=== PATIENT | male | born 1980 | race African-American/Black ===

== ENCOUNTER 2018-05-23 21:23 | Emergency (ER) | payer MEDICAID ==
[~2018-05-23 21:23] MED LIST: INSLAN; insulin
== END 2018-05-23 22:40 | disposition left against medical advice (07) ==
LOC: ER 21:23
DX: Z53.21 Procedure and treatment not carried out due to patient leaving prior to being seen by health care provider (principal)

== ENCOUNTER 2018-07-29 23:30 | Emergency (ER) | payer MEDICAID ==
[~2018-07-29] VITALS: Ht 167.6 cm; Wt 61.0 kg
[2018-07-30] MEDS ORDERED: IBUPROFEN 600MG TABLET PO ONE (01:00)
[2018-07-30] MEDS ORDERED: DEXAMETHASONE 10 MG/ML VIAL IM ONE (01:00)
[2018-07-30 01:26] VITALS: BP 122/80
== END 2018-07-30 01:26 | disposition home or self-care (01) ==
LOC: ER 23:30
DX: J02.9 Acute pharyngitis, unspecified (principal); E11.9 Type 2 diabetes mellitus without complications
CPT/HCPCS: 96372; 99283; J1100

== ENCOUNTER 2019-01-05 23:08 | Emergency (ER) | payer MEDICAID ==
[~2019-01-05] VITALS: Ht 167.6 cm; Wt 61.0 kg
[2019-01-06] MEDS ORDERED: IBUPROFEN 800MG TABLET PO ONE (00:30)
[2019-01-06 03:18] VITALS: BP 136/84
== END 2019-01-06 03:23 | disposition home or self-care (01) ==
LOC: ER 23:08
DX: M79.662 Pain in left lower leg (principal); M79.661 Pain in right lower leg; R60.0 Localized edema; F12.10 Cannabis abuse, uncomplicated; E11.9 Type 2 diabetes mellitus without complications; Z79.4 Long term (current) use of insulin
CPT/HCPCS: 93970; 99284

== ENCOUNTER 2019-04-12 08:57 | Emergency (ER) | payer MEDICAID ==
[~2019-04-12] VITALS: Ht 170.2 cm; Wt 77.0 kg
[2019-04-12 09:23] VITALS: BP 116/63
== END 2019-04-12 09:59 | disposition left against medical advice (07) ==
LOC: ER 08:57
DX: Z53.21 Procedure and treatment not carried out due to patient leaving prior to being seen by health care provider (principal); E11.9 Type 2 diabetes mellitus without complications; Z79.4 Long term (current) use of insulin

== ENCOUNTER 2019-04-13 16:35 | Emergency (ER) | payer MEDICAID ==
[~2019-04-13] VITALS: Ht 167.6 cm; Wt 61.0 kg
[2019-04-13] MEDS ORDERED: LIDOCAINE HCL/EPINEPHRINE 1%-EPI 1:100,000 20 ML VIAL INFIL ONE (17:30)
[2019-04-13] MEDS ORDERED: IBUPROFEN 800MG TABLET PO ONE (17:30)
[2019-04-13 17:46] VITALS: BP 114/68
== END 2019-04-13 18:42 | disposition home or self-care (01) ==
LOC: ER 16:35
DX: S60.011A Contusion of right thumb without damage to nail, initial encounter (principal); E11.9 Type 2 diabetes mellitus without complications; W23.1XXA Caught, crushed, jammed, or pinched between stationary objects, initial encounter; Y93.9 Activity, unspecified; Y92.9 Unspecified place or not applicable; Z79.4 Long term (current) use of insulin
CPT/HCPCS: 73140; 99283; J3490

== ENCOUNTER 2019-08-06 12:13 | Emergency (ER) | payer MEDICAID ==
[~2019-08-06] VITALS: Ht 167.6 cm; Wt 61.0 kg
[~2019-08-06 12:13] MED LIST changes: -INSLAN; +INSLAN SUBCUT
[2019-08-06 13:20] VITALS: BP 109/63
== END 2019-08-06 13:43 | disposition home or self-care (01) ==
LOC: ER 12:13
DX: R20.0 Anesthesia of skin (principal); E11.9 Type 2 diabetes mellitus without complications; F12.10 Cannabis abuse, uncomplicated; Z79.4 Long term (current) use of insulin
CPT/HCPCS: 82962; 99282; 99283

== ENCOUNTER 2019-12-02 12:17 | Emergency (ER) | payer MEDICAID ==
[~2019-12-02] VITALS: Ht 167.6 cm; Wt 61.0 kg
[2019-12-02 12:35] VITALS: BP 122/82
== END 2019-12-02 12:49 | disposition left against medical advice (07) ==
LOC: ER 12:17
DX: Z53.21 Procedure and treatment not carried out due to patient leaving prior to being seen by health care provider (principal)

== ENCOUNTER 2020-07-29 17:04 | Emergency (ER) | payer MEDICAID ==
[~2020-07-29] VITALS: Ht 167.6 cm; Wt 59.0 kg
[2020-07-29] MEDS ORDERED: ACETAMINOPHEN 325MG TABLET PO ONE (19:30)
[2020-07-29 21:50] LABS: BASOPHILS % 0.5 % (0.0-2.0); EOSINOPHILS % 0.3 % (0.0-5.0); HEMATOCRIT. 44.7 % (42.0-52.0); HEMOGLOBIN. 14.7 g/dL (14.0-18.0); LYMPHOCYTES % 21.8 % (20.0-50.0); MEAN CORPUSCULAR VOLUME 82.1 fL (80.0-94.0); MEAN PLATELET VOLUME 8.2 fl (7.4-10.4); MONOCYTES % 4.1 % (2.0-8.0); NEUTROPHILS % 73.3 % (40.0-76.0); PLATELET 263 x1000/uL (130-400); RED BLOOD CELL COUNT 5.44 mill/uL (4.7-6.1); RED CELL DISTRIBUTION WIDTH 13.3 % (11.6-14.6)
[2020-07-29 21:54] LABS: CHLORIDE 103 mEq/L (98-107)
[2020-07-29 21:57] LABS: PROTHROMBIN TIME 10.9 sec (9.6-11.0)
[2020-07-30] MEDS ORDERED: KETOROLAC 15MG/ML VIAL IV NR (02:15)
[2020-07-30] MEDS ORDERED: SODIUM CHLORIDE 0.9% 1,000 ML IV NR (02:15)
[2020-07-30] MEDS ORDERED: METOCLOPRAMIDE HCL 10MG/2ML VIAL IV NR (02:15)
[2020-07-30 04:00] VITALS: BP 137/67
== END 2020-07-30 04:03 | disposition home or self-care (01) ==
LOC: ER 17:04
DX: E11.43 Type 2 diabetes mellitus with diabetic autonomic (poly)neuropathy (principal); K31.84 Gastroparesis; E11.65 Type 2 diabetes mellitus with hyperglycemia; F12.10 Cannabis abuse, uncomplicated; Z79.4 Long term (current) use of insulin
CPT/HCPCS: 36415; 80053; 82962; 83605; 83690; 85025; 85610; 93005; 96361; 96374; 96375; 99284; J1885; J2765

== ENCOUNTER 2021-07-14 15:54 | Inpatient (IN) | payer MEDICAID ==
[~2021-07-14] VITALS: Ht 167.6 cm; Wt 67.1 kg
[2021-07-14] MEDS ORDERED: ONDANSETRON HCL 4MG/2ML INJ IV STA (16:29)
[2021-07-14] MEDS ORDERED: SODIUM CHLORIDE 0.9% 1,000 ML IV ONE ×4 (16:30→23:30)
[2021-07-14 17:30] LABS: BASOPHILS % 0.5 % (0.0-2.0); EOSINOPHILS % 0.1 % (0.0-5.0); HEMATOCRIT. 42.2 % (42.0-52.0); HEMOGLOBIN. 13.7 g/dL (14.0-18.0); LYMPHOCYTES % 8.7 % (20.0-50.0); MEAN CORPUSCULAR HEMOGLOBIN 26.7 pg (28.0-32.0); MONOCYTES % 2.7 % (2.0-8.0); PLATELET 286 x1000/uL (130-400); RED BLOOD CELL COUNT 5.14 mill/uL (4.7-6.1); RED CELL DISTRIBUTION WIDTH 12.9 % (11.6-14.6)
[2021-07-14 17:36] LABS: CHLORIDE 105 mEq/L (98-107)
[2021-07-14 17:43] LABS: BETA HYDROXYBUTYRATE 5.3 mMol/L (0.0-0.3)
[2021-07-14] MEDS ORDERED: ONDANSETRON HCL 4MG/2ML INJ IV ONE (20:15)
[2021-07-14] MEDS ORDERED: MORPHINE SULFATE 4 MG/ML CPJ (NOT FOR IM USE) IV ONE ×2 (20:45→23:30)
[2021-07-14 21:07] LABS: CLARITY URINE CLEAR (CLEAR); COLOR URINE YELLOW (YELLOW); KETONES URINE 4+ (NEGATIVE); LEUKOCYTE ESTERASE URINE NEGATIVE (NEGATIVE); NITRITE URINE NEGATIVE (NEGATIVE); OCCULT BLOOD URINE NEGATIVE (NEGATIVE); PH URINE 5.5 (4.5-8.0); PROTEIN URINE 1+ (NEGATIVE); UROBILINOGEN URINE 0.2 E.U./dL (0.2-1.0)
[2021-07-14] MEDS ORDERED: KCL 10MEQ/50ML PREMIX 50 ML IV ONE (22:30)
[2021-07-14] MEDS ORDERED: INSULIN GLARGINE UD 100 UNITS/ML SYR SUBCUT STA (22:31)
[2021-07-14 23:17] LABS: CHLORIDE 105 mEq/L (98-107)
[2021-07-14] MEDS ORDERED: SODIUM CHL 0.9% + KCL 20MEQ/L 1,000 ML IV STA (23:20)
[2021-07-15 00:41] LABS: CHLORIDE 106 mEq/L (98-107)
[2021-07-15] MEDS ORDERED: INSULIN REGULAR (DRIP) 100 UNITS in SODIUM CHLORIDE 0.9% 100 ML IV SCH (02:15)
[2021-07-15] MEDS ORDERED: INSULIN REGULAR (DRIP) 100 UNITS in SODIUM CHLORIDE 0.9% 100 ML IV ONE (02:15)
[2021-07-15] MEDS ORDERED: SODIUM CHLORIDE 0.9% 1,000 ML IV SCH (02:30)
[2021-07-15] MEDS ORDERED: INSULIN REGULAR (HUMULIN R) 300UNITS/3ML VIAL IV NR (02:30)
[2021-07-15 04:19] LABS: CHLORIDE 111 mEq/L (98-107)
[2021-07-15 04:24] LABS: PHOSPHORUS 3.3 mg/dL (2.5-4.9)
[2021-07-15] MEDS ORDERED: DEXT 5%/0.9% NACL KCL 20MEQ/L 1,000 ML IV SCH (05:30)
[2021-07-15] MEDS ORDERED: DEXT 5%/0.45% NACL KCL 20MEQ/L 1,000 ML IV SCH (05:30)
[2021-07-15 06:15] LABS: CHLORIDE 114 mEq/L (98-107)
[2021-07-15 08:18] LABS: CHLORIDE 113 mEq/L (98-107)
[2021-07-15 08:24] LABS: PHOSPHORUS 2.9 mg/dL (2.5-4.9)
[2021-07-15] MEDS ORDERED: INSULIN GLARGINE UD 100 UNITS/ML SYR SUBCUT SCH (08:45)
[2021-07-15] MEDS ORDERED: MORPHINE SULFATE 2 MG/ML CPJ (NOT FOR IM USE) IV NR (10:00)
[2021-07-15] MEDS ORDERED: ONDANSETRON HCL 4MG/2ML INJ IV PRN ×2 (10:00→23:15)
[2021-07-15] MEDS: METOCLOPRAMIDE HCL 10MG/2ML VIAL IV SCH ×3 (11:56→22:55)
[2021-07-15] MEDS: DEXTROSE 50% WATER 50ML SYRINGE IV PRN ×2 (12:14→17:46)
[2021-07-15 15:30] VITALS: BP 97/67
[2021-07-15 15:40] VITALS: BP 97/67
[2021-07-15] MEDS: INSULIN LISPRO 100 UNITS/ML SUBCUT SCH ×2 (17:50→20:43)
[2021-07-15] MEDS: BLOOD SUGAR DIAGNOSTIC STRIP TEST SCH ×2 (18:18→20:42)
[2021-07-15] MEDS ORDERED: ASPI-1497 MT (18:48)
[2021-07-15] MEDS ORDERED: ALBU4TAB6 PO (18:49)
[2021-07-15] MEDS ORDERED: IBUP-2778 PO (18:49)
[2021-07-15 20:00] VITALS: BP 100/62
[2021-07-15] MEDS ORDERED: INFLUENZA VACCINE 05/PF 0.5 ML SYRINGE IM ONE (20:00)
[2021-07-15] MEDS ORDERED: IOHEXOL-300 100 ML BOTTLE ONE (22:16)
[2021-07-15] MEDS: MORPHINE SULFATE 2 MG/ML CPJ (NOT FOR IM USE) IV PRN (23:30)
[2021-07-15] MEDS ORDERED: NALOXONE HCL 0.4MG/ML VIAL IV PRN (23:30)
[2021-07-16] VITALS: BP 99/58
[2021-07-16] MEDS: SODIUM CHLORIDE 0.45% 1,000 ML IV SCH ×2 (01:09→12:26)
[2021-07-16 04:00] VITALS: BP 114/71
[2021-07-16] MEDS: METOCLOPRAMIDE HCL 10MG/2ML VIAL IV SCH ×3 (05:11→17:17)
[2021-07-16] MEDS: BLOOD SUGAR DIAGNOSTIC STRIP TEST SCH ×4 (07:01→21:31)
[2021-07-16] MEDS: INSULIN LISPRO 100 UNITS/ML SUBCUT SCH ×4 (07:07→21:00)
[2021-07-16 08:00] VITALS: BP 105/68
[2021-07-16 08:29] LABS: BASOPHILS % 0.3 % (0.0-2.0); HEMATOCRIT. 42.5 % (42.0-52.0); HEMOGLOBIN. 14.1 g/dL (14.0-18.0); LYMPHOCYTES % 8.6 % (20.0-50.0); MEAN CORPUSCULAR HEMOGLOBIN 27.3 pg (28.0-32.0); MEAN CORPUSCULAR VOLUME 82.5 fL (80.0-94.0); MEAN PLATELET VOLUME 8.4 fl (7.4-10.4); MONOCYTES % 4.3 % (2.0-8.0); NEUTROPHILS % 86.8 % (40.0-76.0); PLATELET 259 x1000/uL (130-400); RED BLOOD CELL COUNT 5.14 mill/uL (4.7-6.1); RED CELL DISTRIBUTION WIDTH 13.2 % (11.6-14.6)
[2021-07-16 08:48] LABS: CHLORIDE 101 mEq/L (98-107)
[2021-07-16] MEDS: MORPHINE SULFATE 2 MG/ML CPJ (NOT FOR IM USE) IV PRN (09:16)
[2021-07-16] MEDS ORDERED: METO-293 MT (11:48)
[2021-07-16 12:00] VITALS: BP 118/71
[2021-07-16] MEDS ORDERED: HYDROCODONE/ACETAMINOPHEN 5/325MG TABLET PO PRN (12:00)
[2021-07-16] MEDS ORDERED: MORPHINE SULFATE 2 MG/ML CPJ (NOT FOR IM USE) IV NR (15:15)
[2021-07-16 16:00] VITALS: BP 120/73
[2021-07-16] MEDS ORDERED: ONDANSETRON HCL 4MG/2ML INJ IV PRN (16:15)
[2021-07-16 20:00] VITALS: BP 94/49
== END 2021-07-16 21:32 | disposition left against medical advice (07) | DRG 48 ==
LOC: ER 15:54 → MICUSO 07-15 00:45 → EDBEDREQSVC 07-15 00:56 → EDBEDREQDT 07-15 00:56 → EDBEDREQTM 07-15 00:56 → EDBEDREQ 07-15 00:56 → 6EST 07-15 14:57
PROVIDERS: ADMIT Internal Medicine; ATTEND Internal Medicine
DX: E11.43 Type 2 diabetes mellitus with diabetic autonomic (poly)neuropathy (principal); F12.90 Cannabis use, unspecified, uncomplicated; E11.10 Type 2 diabetes mellitus with ketoacidosis without coma; K31.84 Gastroparesis; Z53.29 Procedure and treatment not carried out because of patient's decision for other reasons; Z79.4 Long term (current) use of insulin; Z91.14 Patient's other noncompliance with medication regimen; Z91.19 Patient's noncompliance with other medical treatment and regimen; Z79.899 Other long term (current) drug therapy
CPT/HCPCS: 36415; 74177; 80048; 80053; 81003; 82010; 82962; 83735; 84100; 85025; 93005; 99291; J1815; J2270; J2405; J2765; J3480; J7030; J7050; Q9967

== ENCOUNTER 2021-07-17 23:13 | Inpatient (IN) | payer MEDICAID ==
[~2021-07-17] VITALS: Ht 177.8 cm; Wt 68.0 kg
[~2021-07-17 23:13] MED LIST changes: +ALBU4TAB6 PO; +ASPI-1497 MT; +IBUP-2778 PO; +METO-293 MT
[2021-07-18] MEDS ORDERED: MAGNESIUM/ALUMINUM HYDROXIDE/SIMETHICONE 30ML UDC PO STA (00:05)
[2021-07-18] MEDS ORDERED: ONDANSETRON HCL 4MG/2ML INJ IV STA (00:05)
[2021-07-18] MEDS ORDERED: VISCOUS LIDOCAINE 2% 15 ML UDC PO STA (00:05)
[2021-07-18] MEDS ORDERED: METOCLOPRAMIDE HCL 10MG/2ML VIAL IV STA (00:05)
[2021-07-18] MEDS ORDERED: KETOROLAC 30MG/ML VIAL IV STA (00:05)
[2021-07-18] MEDS ORDERED: SODIUM CHLORIDE 0.9% 1,000 ML IV ONE (00:15)
[2021-07-18 00:32] LABS: BASOPHILS % 0.4 % (0.0-2.0); EOSINOPHILS % 0.1 % (0.0-5.0); HEMATOCRIT. 39.2 % (42.0-52.0); HEMOGLOBIN. 13.3 g/dL (14.0-18.0); LYMPHOCYTES % 20.8 % (20.0-50.0); MEAN CORPUSCULAR HEMOGLOBIN 27.3 pg (28.0-32.0); MEAN CORPUSCULAR VOLUME 80.3 fL (80.0-94.0); MEAN PLATELET VOLUME 7.3 fl (7.4-10.4); MONOCYTES % 8.4 % (2.0-8.0); NEUTROPHILS % 70.3 % (40.0-76.0); PLATELET 219 x1000/uL (130-400); RED BLOOD CELL COUNT 4.88 mill/uL (4.7-6.1); RED CELL DISTRIBUTION WIDTH 12.7 % (11.6-14.6)
[2021-07-18 00:37] LABS: CHLORIDE 106 mEq/L (98-107)
[2021-07-18 00:41] LABS: ETHANOL BLOOD < 10 mg/dL
[2021-07-18 00:43] LABS: BETA HYDROXYBUTYRATE 1.3 mMol/L (0.0-0.3)
[2021-07-18 00:46] LABS: CLARITY URINE CLEAR (CLEAR); COLOR URINE YELLOW (YELLOW); KETONES URINE 1+ (NEGATIVE); LEUKOCYTE ESTERASE URINE NEGATIVE (NEGATIVE); NITRITE URINE NEGATIVE (NEGATIVE); OCCULT BLOOD URINE NEGATIVE (NEGATIVE); PROTEIN URINE NEGATIVE (NEGATIVE); SPECIFIC GRAVITY URINE 1.007 (1.005-1.030); UROBILINOGEN URINE 0.2 E.U./dL (0.2-1.0)
[2021-07-18] MEDS ORDERED: POTASSIUM CHLORIDE 20MEQ TABLET SR PO ONE (01:00)
[2021-07-18] MEDS ORDERED: POTASSIUM CHLORIDE INJ 40 MEQ in DEXT 5% WATER 250 ML IV ONE (01:00)
[2021-07-18 01:01] LABS: *AMPHETAMINES SCREEN URINE NEGATIVE (NEGATIVE); *BARBITURATES SCREEN URINE NEGATIVE (NEGATIVE); *BENZODIAZEPINES SCREEN URINE NEGATIVE (NEGATIVE); *COCAINE SCREEN URINE NEGATIVE (NEGATIVE); METHADONE URINE SCREEN NEGATIVE (NEGATIVE); OPIATES URINE SCREEN NEGATIVE (NEGATIVE)
[2021-07-18 01:02] LABS: CANNABINOID URINE SCREEN PRESUMTIVE POSITIVE (NEGATIVE); PHENCYCLIDINE URINE SCREEN NEGATIVE (NEGATIVE)
[2021-07-18] MEDS ORDERED: HYDROCODONE/ACETAMINOPHEN 5/325MG TABLET PO PRN (07:30)
[2021-07-18] MEDS ORDERED: GUAIFENESIN 200MG/10ML SUGAR FREE UDC PO PRN (07:30)
[2021-07-18] MEDS ORDERED: CLONIDINE 0.1MG TABLET PO PRN (07:30)
[2021-07-18] MEDS ORDERED: MORPHINE SULFATE 2 MG/ML CPJ (NOT FOR IM USE) IV PRN ×2 (07:30→18:30)
[2021-07-18] MEDS ORDERED: ONDANSETRON HCL 4MG/2ML INJ IV PRN (07:30)
[2021-07-18] MEDS ORDERED: LORAZEPAM 2MG/ML CPJ IV PRN (07:30)
[2021-07-18] MEDS ORDERED: DIPHENHYDRAMINE 50MG/ML VIAL IV PRN (07:30)
[2021-07-18] MEDS ORDERED: MAGNESIUM/ALUMINUM HYDROXIDE/SIMETHICONE 30ML UDC PO PRN (07:30)
[2021-07-18] MEDS ORDERED: HYDRALAZINE 20MG/ML VIAL IV PRN (07:30)
[2021-07-18] MEDS ORDERED: DEXTROSE 50% WATER 50ML SYRINGE IV PRN (07:30)
[2021-07-18] MEDS ORDERED: ACETAMINOPHEN 325MG TABLET PO PRN (07:30)
[2021-07-18] MEDS ORDERED: DOCUSATE SODIUM 100MG CAPSULE PO PRN (07:30)
[2021-07-18] MEDS ORDERED: IPRATROPIUM/ALBUTEROL 0.5-3(2.5)MG/3ML NEB HHN PRN (07:30)
[2021-07-18] MEDS ORDERED: NALOXONE HCL 0.4MG/ML VIAL IV PRN (07:45)
[2021-07-18] MEDS ORDERED: SODIUM CHLORIDE 0.45% 1,000 ML IV SCH (08:00)
[2021-07-18] MEDS: ENOXAPARIN 40MG/0.4ML SYR SUBCUT SCH (09:00)
[2021-07-18] MEDS: BLOOD SUGAR DIAGNOSTIC STRIP TEST SCH ×3 (09:04→21:26)
[2021-07-18] MEDS ORDERED: DEXT 5%/0.45% NACL 1000ML 1,000 ML IV ONE (10:30)
[2021-07-18] MEDS ORDERED: PANTOPRAZOLE SODIUM 40 MG/VIAL IV SCH (10:30)
[2021-07-18 12:00] VITALS: BP 141/92
[2021-07-18] MEDS: METOCLOPRAMIDE HCL 10MG/2ML VIAL IV SCH ×3 (12:00→23:06)
[2021-07-18] MEDS: INSULIN LISPRO 100 UNITS/ML SUBCUT SCH ×4 (12:50→21:00)
[2021-07-18] MEDS: DEXT 5%/0.45% NACL 1000ML 1,000 ML IV SCH (13:15)
[2021-07-18] MEDS ORDERED: *PATIENT'S OWN MEDICATION STORAGE XX SCH (14:00)
[2021-07-18] MEDS: SODIUM CHLORIDE 0.9% INJ 3ML FLUSH IVF SCH ×2 (14:00→21:27)
[2021-07-18 14:30] VITALS: BP 144/91
[2021-07-18 16:00] VITALS: BP 139/85
[2021-07-18 16:21] LABS: CREATINE KINASE MB FRACTION 2.8 ng/mL (0.5-3.6)
[2021-07-18] MEDS ORDERED: KETOROLAC 15MG/ML VIAL IV PRN (16:30)
[2021-07-18] MEDS ORDERED: PROCHLORPERAZINE 10MG/2ML VIAL IV PRN (16:30)
[2021-07-18 16:32] LABS: CREATINE KINASE 1327 IU/L (39-308)
[2021-07-18] MEDS: DOCUSATE SODIUM 100MG CAPSULE PO SCH (17:00)
[2021-07-18] MEDS: PANTOPRAZOLE 40MG DR TABLET PO SCH ×2 (18:27→21:26)
[2021-07-18 20:00] VITALS: BP 125/78
[2021-07-19] VITALS: BP 128/80
[2021-07-19 00:30] LABS: CREATINE KINASE MB FRACTION 1.7 ng/mL (0.5-3.6)
[2021-07-19 00:41] LABS: CREATINE KINASE 1020 IU/L (39-308)
[2021-07-19 04:00] VITALS: BP 124/76
[2021-07-19] MEDS: SODIUM CHLORIDE 0.9% INJ 3ML FLUSH IVF SCH ×2 (05:55→14:00)
[2021-07-19] MEDS: DEXT 5%/0.45% NACL 1000ML 1,000 ML IV SCH (05:55)
[2021-07-19] MEDS: PANTOPRAZOLE 40MG DR TABLET PO SCH (05:55)
[2021-07-19] MEDS: METOCLOPRAMIDE HCL 10MG/2ML VIAL IV SCH ×3 (05:55→17:10)
[2021-07-19] MEDS: BLOOD SUGAR DIAGNOSTIC STRIP TEST SCH ×3 (06:42→16:47)
[2021-07-19 06:50] LABS: BASOPHILS % 0.5 % (0.0-2.0); EOSINOPHILS % 0.5 % (0.0-5.0); HEMATOCRIT. 37.8 % (42.0-52.0); HEMOGLOBIN. 12.5 g/dL (14.0-18.0); LYMPHOCYTES % 33.8 % (20.0-50.0); MEAN CORPUSCULAR HEMOGLOBIN 26.7 pg (28.0-32.0); MEAN CORPUSCULAR VOLUME 80.7 fL (80.0-94.0); MEAN PLATELET VOLUME 7.8 fl (7.4-10.4); MONOCYTES % 11.2 % (2.0-8.0); PLATELET 222 x1000/uL (130-400); RED BLOOD CELL COUNT 4.69 mill/uL (4.7-6.1); RED CELL DISTRIBUTION WIDTH 12.9 % (11.6-14.6)
[2021-07-19 07:03] LABS: CHLORIDE 105 mEq/L (98-107)
[2021-07-19 07:27] LABS: HEPATITIS B SURFACE ANTIGEN NEGATIVE
[2021-07-19] MEDS: INSULIN LISPRO 100 UNITS/ML SUBCUT SCH ×3 (07:50→17:19)
[2021-07-19 08:00] VITALS: BP 120/70
[2021-07-19] MEDS: DOCUSATE SODIUM 100MG CAPSULE PO SCH ×3 (09:00→17:10)
[2021-07-19] MEDS: ENOXAPARIN 40MG/0.4ML SYR SUBCUT SCH (09:16)
[2021-07-19] MEDS ORDERED: POTASSIUM CHLORIDE 20MEQ TABLET SR PO NR (10:45)
[2021-07-19 12:00] VITALS: BP 124/76
[2021-07-19] MEDS ORDERED: KCL 20MEQ/100ML PREMIX 100 ML IV SCH (13:00)
[2021-07-19 14:35] VITALS: BP 126/79
[2021-07-19] MEDS ORDERED: POTASSIUM CHLORIDE 20MEQ TABLET SR PO SCH (15:00)
[2021-07-19 15:56] VITALS: BP 138/75
== END 2021-07-19 18:25 | disposition home or self-care (01) | DRG 420 ==
LOC: ER 23:13 → 6WST 07-18 01:15 → ENRESERV 07-18 07:35
PROVIDERS: ADMIT Internal Medicine; ATTEND Internal Medicine
DX: E11.649 Type 2 diabetes mellitus with hypoglycemia without coma (principal); E11.43 Type 2 diabetes mellitus with diabetic autonomic (poly)neuropathy; K31.84 Gastroparesis; E87.6 Hypokalemia; F12.90 Cannabis use, unspecified, uncomplicated; R74.01 Elevation of levels of liver transaminase levels; Z91.14 Patient's other noncompliance with medication regimen; Z79.1 Long term (current) use of non-steroidal anti-inflammatories (NSAID); Z79.899 Other long term (current) drug therapy; Z87.891 Personal history of nicotine dependence; Z79.4 Long term (current) use of insulin
CPT/HCPCS: 36415; 71045; 74176; 80053; 80076; 80305; 80320; 81003; 82010; 82248; 82550; 82553; 82962; 83735; 84132; 84443; 84484; 85025; 86705; 86709; 86803; 87340; 93005; 93970; 99285; J1650; J1885; J2270; J2405; J2765; J3480; J7030; J7060; G0480

== ENCOUNTER 2021-10-24 08:49 | Emergency (ER) | payer MEDICAID ==
[~2021-10-24] VITALS: Ht 167.6 cm; Wt 60.0 kg
[~2021-10-24 08:49] MED LIST changes: -IBUP-2778 PO
[2021-10-24] MEDS ORDERED: ONDANSETRON HCL 4MG/2ML INJ IV STA (09:17)
[2021-10-24] MEDS ORDERED: KETOROLAC 30MG/ML VIAL IV STA (09:17)
[2021-10-24] MEDS ORDERED: SODIUM CHLORIDE 0.9% 1,000 ML IV ONE ×2 (09:30→11:00)
[2021-10-24 10:00] LABS: BASOPHILS % 0.2 % (0.0-2.0); EOSINOPHILS % 0.5 % (0.0-5.0); HEMATOCRIT. 40.3 % (42.0-52.0); HEMOGLOBIN. 13.5 g/dL (14.0-18.0); LYMPHOCYTES % 11.2 % (20.0-50.0); MEAN CORPUSCULAR HEMOGLOBIN 27.6 pg (28.0-32.0); MEAN CORPUSCULAR VOLUME 82.5 fL (80.0-94.0); MONOCYTES % 4.6 % (2.0-8.0); NEUTROPHILS % 83.5 % (40.0-76.0); PLATELET 258 x1000/uL (130-400); RED BLOOD CELL COUNT 4.89 mill/uL (4.7-6.1); RED CELL DISTRIBUTION WIDTH 13.4 % (11.6-14.6)
[2021-10-24 10:13] LABS: CHLORIDE 102 mEq/L (98-107)
[2021-10-24 10:27] LABS: BETA HYDROXYBUTYRATE 1.1 mMol/L (0.0-0.3)
[2021-10-24] MEDS ORDERED: INSULIN LISPRO 100 UNITS/ML SUBCUT NR (10:45)
[2021-10-24] MEDS ORDERED: METOCLOPRAMIDE HCL 10MG/2ML VIAL IV NR (11:30)
[2021-10-24] MEDS ORDERED: HALOPERIDOL LACTATE 5MG/ML VIAL IM ONE (12:30)
[2021-10-24] MEDS ORDERED: METO5TAB86 MT (14:14)
[2021-10-24 15:20] VITALS: BP 130/67
[2021-10-25] MEDS ORDERED: INSLIS SUBCUT (13:24)
[2021-10-25] MEDS ORDERED: LANTUSUD SUBCUT (13:24)
== END 2021-10-24 15:27 | disposition home or self-care (01) ==
LOC: ER 08:49 → CANBEDREQ 14:42 → ER 15:27
DX: E11.43 Type 2 diabetes mellitus with diabetic autonomic (poly)neuropathy (principal); K31.84 Gastroparesis; F12.10 Cannabis abuse, uncomplicated; Z20.822 Contact with and (suspected) exposure to COVID-19; Z98.890 Other specified postprocedural states; Z79.4 Long term (current) use of insulin
CPT/HCPCS: 36415; 76705; 80053; 82010; 82962; 83690; 85025; 87426; 96361; 96372; 96374; 96375; 99285; J1630; J1815; J1885; J2405; J2765; J7030; Z7610

== ENCOUNTER 2021-10-24 16:30 | Inpatient (IN) | payer MEDICAID ==
[~2021-10-24] VITALS: Ht 172.7 cm; Wt 66.0 kg
[~2021-10-24 16:30] MED LIST changes: +METO5TAB86 MT
[2021-10-24] MEDS ORDERED: PANTOPRAZOLE SODIUM 40 MG/VIAL IV STA (16:47)
[2021-10-24] MEDS ORDERED: METOCLOPRAMIDE HCL 10MG/2ML VIAL IV STA (16:47)
[2021-10-24] MEDS ORDERED: SODIUM CHLORIDE 0.9% 1,000 ML IV ONE ×2 (17:00→23:30)
[2021-10-24 17:38] LABS: BASOPHILS % 0.4 % (0.0-2.0); EOSINOPHILS % 0.2 % (0.0-5.0); HEMOGLOBIN. 13.5 g/dL (14.0-18.0); LYMPHOCYTES % 10.4 % (20.0-50.0); MEAN CORPUSCULAR HEMOGLOBIN 27.9 pg (28.0-32.0); MEAN CORPUSCULAR VOLUME 80.7 fL (80.0-94.0); MEAN PLATELET VOLUME 8.3 fl (7.4-10.4); MONOCYTES % 3.1 % (2.0-8.0); NEUTROPHILS % 85.9 % (40.0-76.0); PLATELET 278 x1000/uL (130-400); RED BLOOD CELL COUNT 4.83 mill/uL (4.7-6.1); RED CELL DISTRIBUTION WIDTH 13.3 % (11.6-14.6)
[2021-10-24 17:51] LABS: CHLORIDE 105 mEq/L (98-107)
[2021-10-24 17:55] LABS: ETHANOL BLOOD < 10 mg/dL
[2021-10-24] MEDS ORDERED: INSULIN REGULAR (HUMULIN R) 300UNITS/3ML VIAL SUBCUT ONE (18:00)
[2021-10-24] MEDS ORDERED: PROCHLORPERAZINE 10MG/2ML VIAL IM ONE (18:30)
[2021-10-24 19:01] LABS: CLARITY URINE CLEAR (CLEAR); COLOR URINE YELLOW (YELLOW); KETONES URINE 3+ (NEGATIVE); LEUKOCYTE ESTERASE URINE NEGATIVE (NEGATIVE); NITRITE URINE NEGATIVE (NEGATIVE); OCCULT BLOOD URINE NEGATIVE (NEGATIVE); PROTEIN URINE NEGATIVE (NEGATIVE); SPECIFIC GRAVITY URINE 1.037 (1.005-1.030); UROBILINOGEN URINE 0.2 E.U./dL (0.2-1.0)
[2021-10-24 19:03] LABS: BG BASE EXCESS -7.7 mmol/L (-2.0-2.0); BG CARBOXYHEMOGLOBIN 0.5 % (0.5-1.5); BG DEOXYHEMOGLOBIN 3.5 % (0.0-5.0); BG FRACTION INSPIRED OXYGEN 21; BG HCO3 ACT 17.2 mmol/L (22.0-26.0); BG METHEMOGLOBIN 0.5 % (0.0-1.5); BG OXYGEN SATURATION 96.5 % (92.0-98.5); BG OXYHEMOGLOBIN 95.5 % (94.0-97.0); BG PCO2 33.4 mmHg (35.0-45.0); BG PO2 88.9 mmHg (75.0-100.0); BG SAMPLE SITE RIGHT BRACHIAL; BG TOTAL HEMOGLOBIN 13.3 g/dL (12.0-18.0); BG VENT MODE ROOM AIR
[2021-10-24 19:43] LABS: *COCAINE SCREEN URINE NEGATIVE (NEGATIVE); METHADONE URINE SCREEN NEGATIVE (NEGATIVE); OPIATES URINE SCREEN NEGATIVE (NEGATIVE); PHENCYCLIDINE URINE SCREEN NEGATIVE (NEGATIVE)
[2021-10-24 19:44] LABS: *AMPHETAMINES SCREEN URINE NEGATIVE (NEGATIVE); *BARBITURATES SCREEN URINE NEGATIVE (NEGATIVE); *BENZODIAZEPINES SCREEN URINE NEGATIVE (NEGATIVE); CANNABINOID URINE SCREEN PRESUMTIVE POSITIVE (NEGATIVE)
[2021-10-24] MEDS ORDERED: INSULIN REGULAR (HUMULIN R) 300UNITS/3ML VIAL SUBCUT NR (22:45)
[2021-10-24] MEDS ORDERED: GUAIFENESIN 200MG/10ML SUGAR FREE UDC PO PRN (23:00)
[2021-10-24] MEDS ORDERED: ONDANSETRON HCL 4MG/2ML INJ IV PRN (23:00)
[2021-10-24] MEDS ORDERED: IPRATROPIUM/ALBUTEROL 0.5-3(2.5)MG/3ML NEB NEB PRN (23:00)
[2021-10-24] MEDS ORDERED: MAGNESIUM/ALUMINUM HYDROXIDE/SIMETHICONE 30ML UDC PO PRN (23:00)
[2021-10-24] MEDS ORDERED: HYDROCODONE/ACETAMINOPHEN 5/325MG TABLET PO PRN (23:00)
[2021-10-24] MEDS ORDERED: CLONIDINE 0.1MG TABLET PO PRN (23:00)
[2021-10-24] MEDS ORDERED: ACETAMINOPHEN 325MG TABLET PO PRN ×2 (23:00)
[2021-10-25] MEDS ORDERED: DEXTROSE 50% WATER 50ML SYRINGE IV PRN (00:30)
[2021-10-25] MEDS ORDERED: INSULIN GLARGINE UD 100 UNITS/ML SYR SUBCUT SCH ×2 (01:00→10:00)
[2021-10-25 04:37] LABS: BASOPHILS % 0.3 % (0.0-2.0); HEMATOCRIT. 35.2 % (42.0-52.0); HEMOGLOBIN. 11.6 g/dL (14.0-18.0); LYMPHOCYTES % 12.4 % (20.0-50.0); MEAN CORPUSCULAR HEMOGLOBIN 26.9 pg (28.0-32.0); MEAN PLATELET VOLUME 7.9 fl (7.4-10.4); MONOCYTES % 5.2 % (2.0-8.0); NEUTROPHILS % 82.1 % (40.0-76.0); PLATELET 260 x1000/uL (130-400); RED BLOOD CELL COUNT 4.29 mill/uL (4.7-6.1); RED CELL DISTRIBUTION WIDTH 13.6 % (11.6-14.6)
[2021-10-25 04:41] LABS: CHLORIDE 107 mEq/L (98-107)
[2021-10-25 04:47] LABS: PHOSPHORUS 3.6 mg/dL (2.5-4.9)
[2021-10-25] MEDS: BLOOD SUGAR DIAGNOSTIC STRIP TEST SCH ×2 (06:28→12:35)
[2021-10-25] MEDS: INSULIN LISPRO 100 UNITS/ML SUBCUT SCH ×4 (06:36→12:35)
[2021-10-25] MEDS ORDERED: SODIUM CHLORIDE 0.9% 1,000 ML IV SCH (08:00)
[2021-10-25] MEDS ORDERED: NALOXONE HCL 0.4MG/ML VIAL IV PRN (08:45)
[2021-10-25] MEDS ORDERED: ENOXAPARIN 40MG/0.4ML SYR SUBCUT SCH (09:00)
[2021-10-25] MEDS ORDERED: LANTUSUD SUBCUT (13:24)
[2021-10-25] MEDS ORDERED: INSLIS SUBCUT (13:24)
[2021-10-25 13:45] VITALS: BP 108/61
[2021-11-21] MEDS ORDERED: METO5TAB86 MT (11:41)
[2021-11-21] MEDS ORDERED: INSU100I28 SQ (11:41)
== END 2021-10-25 15:54 | disposition home or self-care (01) | DRG 420 ==
LOC: ER 16:30 → MICUSO 19:08 → EDBEDREQTM 19:11 → EDBEDREQ 19:11 → CANRESERV 20:05 → ENRESERV 20:05 → SUPCPDRO 22:53
PROVIDERS: ADMIT Internal Medicine; ATTEND Internal Medicine
DX: E11.65 Type 2 diabetes mellitus with hyperglycemia (principal); R11.2 Nausea with vomiting, unspecified; Z20.822 Contact with and (suspected) exposure to COVID-19; Z82.49 Family history of ischemic heart disease and other diseases of the circulatory system; Z79.82 Long term (current) use of aspirin; Z79.4 Long term (current) use of insulin; Z79.899 Other long term (current) drug therapy
CPT/HCPCS: 36415; 36600; 80048; 80053; 80305; 80320; 81003; 82375; 82805; 82962; 83036; 83605; 83735; 84100; 85025; 87426; 93005; 99291; C9113; J0780; J1650; J1815; J2765; J7030; G0480

== ENCOUNTER 2021-12-05 07:58 | Inpatient (IN) | payer MEDICAID ==
[2021-12-05] VITALS (14 sets, daily range): BP systolic 84–139; BP diastolic 36–84
[~2021-12-05] VITALS: Ht 172.7 cm; Wt 54.9 kg
[~2021-12-05 07:58] MED LIST changes: -INSLAN SUBCUT; +INSLIS SUBCUT; +INSU100I28 SQ; +LANTUSUD SUBCUT; -METO-293 MT; -insulin
[2021-12-05] MEDS ORDERED: SODIUM CHLORIDE 0.9% 1,000 ML IV ONE (09:00)
[2021-12-05 09:05] LABS: BASOPHILS % 0.4 % (0.0-2.0); EOSINOPHILS % 0.2 % (0.0-5.0); HEMATOCRIT. 44.5 % (42.0-52.0); HEMOGLOBIN. 14.5 g/dL (14.0-18.0); LYMPHOCYTES % 13.5 % (20.0-50.0); MEAN CORPUSCULAR HEMOGLOBIN 27.4 pg (28.0-32.0); MEAN CORPUSCULAR VOLUME 83.8 fL (80.0-94.0); MEAN PLATELET VOLUME 7.8 fl (7.4-10.4); MONOCYTES % 2.1 % (2.0-8.0); NEUTROPHILS % 83.8 % (40.0-76.0); PLATELET 285 x1000/uL (130-400); RED BLOOD CELL COUNT 5.31 mill/uL (4.7-6.1); RED CELL DISTRIBUTION WIDTH 13.3 % (11.6-14.6)
[2021-12-05 09:15] LABS: CLARITY URINE CLEAR (CLEAR); COLOR URINE YELLOW (YELLOW); KETONES URINE 4+ (NEGATIVE); LEUKOCYTE ESTERASE URINE NEGATIVE (NEGATIVE); NITRITE URINE NEGATIVE (NEGATIVE); OCCULT BLOOD URINE NEGATIVE (NEGATIVE); PH URINE 5.5 (4.5-8.0); PROTEIN URINE NEGATIVE (NEGATIVE); UROBILINOGEN URINE 0.2 E.U./dL (0.2-1.0)
[2021-12-05 09:16] LABS: CHLORIDE 98 mEq/L (98-107)
[2021-12-05 09:20] LABS: ETHANOL BLOOD < 10 mg/dL
[2021-12-05] MEDS ORDERED: SODIUM CHLORIDE 0.9% 1,000 ML IV NR (09:30)
[2021-12-05 09:31] LABS: *AMPHETAMINES SCREEN URINE NEGATIVE (NEGATIVE)
[2021-12-05 09:32] LABS: *BARBITURATES SCREEN URINE NEGATIVE (NEGATIVE); *BENZODIAZEPINES SCREEN URINE NEGATIVE (NEGATIVE); *COCAINE SCREEN URINE NEGATIVE (NEGATIVE); METHADONE URINE SCREEN NEGATIVE (NEGATIVE); OPIATES URINE SCREEN NEGATIVE (NEGATIVE); PHENCYCLIDINE URINE SCREEN NEGATIVE (NEGATIVE)
[2021-12-05 09:33] LABS: CANNABINOID URINE SCREEN PRESUMTIVE POSITIVE (NEGATIVE)
[2021-12-05] MEDS ORDERED: SODIUM CHLORIDE 0.9% 1,000 ML IV STA (09:51)
[2021-12-05] MEDS ORDERED: INSULIN REGULAR 100U/100ML PMX 100 ML IV ONE (10:00)
[2021-12-05 10:15] LABS: CHLORIDE 103 mEq/L (98-107)
[2021-12-05 10:20] LABS: PHOSPHORUS 3.3 mg/dL (2.5-4.9)
[2021-12-05] MEDS: ONDANSETRON HCL 4MG/2ML INJ IV NR ×2 (10:48→15:03)
[2021-12-05] MEDS ORDERED: SODIUM CHLORIDE 0.9% 1,000 ML IV SCH (11:30)
[2021-12-05] MEDS ORDERED: PANTOPRAZOLE SODIUM 40 MG/VIAL IV SCH (11:30)
[2021-12-05] MEDS ORDERED: ACETAMINOPHEN 325MG TABLET PO PRN (11:30)
[2021-12-05] MEDS: ONDANSETRON HCL 4MG/2ML INJ IV PRN (14:08)
[2021-12-05] MEDS: DEXT 5%/0.45% NACL 1000ML 1,000 ML IV SCH ×2 (15:15→21:46)
[2021-12-05] MEDS: BLOOD SUGAR DIAGNOSTIC STRIP TEST SCH ×5 (16:45→21:00)
[2021-12-05] MEDS ORDERED: DEXTROSE 50% WATER 50ML SYRINGE IV PRN ×2 (16:45)
[2021-12-05] MEDS ORDERED: INSULIN REGULAR 100U/100ML PMX 100 ML IV SCH (17:30)
[2021-12-05 18:05] LABS: CHLORIDE 111 mEq/L (98-107)
[2021-12-05 18:13] LABS: PHOSPHORUS 1.7 mg/dL (2.5-4.9)
[2021-12-05 20:57] LABS: CHLORIDE 111 mEq/L (98-107)
[2021-12-05] MEDS: PANTOPRAZOLE SODIUM 40 MG/VIAL IV SCH (21:46)
[2021-12-05] MEDS ORDERED: BLOOD SUGAR DIAGNOSTIC STRIP TEST SCH (22:00)
[2021-12-06] VITALS (16 sets, daily range): BP systolic 88–137; BP diastolic 42–87
[2021-12-06 00:47] LABS: CHLORIDE 114 mEq/L (98-107)
[2021-12-06] MEDS ORDERED: DEXTROSE 50% WATER 50ML SYRINGE IV PRN ×2 (01:15→09:30)
[2021-12-06] MEDS: ONDANSETRON HCL 4MG/2ML INJ IV PRN ×5 (02:36→23:23)
[2021-12-06 04:22] LABS: BASOPHILS % 0.4 % (0.0-2.0); HEMATOCRIT. 39.5 % (42.0-52.0); HEMOGLOBIN. 13.2 g/dL (14.0-18.0); LYMPHOCYTES % 12.3 % (20.0-50.0); MEAN CORPUSCULAR VOLUME 80.9 fL (80.0-94.0); MEAN PLATELET VOLUME 7.5 fl (7.4-10.4); MONOCYTES % 5.2 % (2.0-8.0); NEUTROPHILS % 82.1 % (40.0-76.0); PLATELET 288 x1000/uL (130-400); RED BLOOD CELL COUNT 4.89 mill/uL (4.7-6.1); RED CELL DISTRIBUTION WIDTH 13.6 % (11.6-14.6)
[2021-12-06 04:32] LABS: CHLORIDE 105 mEq/L (98-107)
[2021-12-06] MEDS ORDERED: INSULIN LISPRO 100 UNITS/ML SUBCUT SCH ×2 (06:30→07:00)
[2021-12-06] MEDS ORDERED: BLOOD SUGAR DIAGNOSTIC STRIP TEST SCH (06:30)
[2021-12-06] MEDS ORDERED: POTASSIUM CHLORIDE 20MEQ TABLET SR PO SCH (08:45)
[2021-12-06] MEDS: PANTOPRAZOLE SODIUM 40 MG/VIAL IV SCH (09:33)
[2021-12-06] MEDS ORDERED: INSULIN LISPRO 100 UNITS/ML SUBCUT NR (09:45)
[2021-12-06] MEDS: INSULIN LISPRO 100 UNITS/ML SUBCUT SCH ×4 (09:46→21:00)
[2021-12-06] MEDS: BLOOD SUGAR DIAGNOSTIC STRIP TEST SCH ×4 (09:47→21:14)
[2021-12-06 09:58] LABS: CHLORIDE 108 mEq/L (98-107)
[2021-12-06] MEDS ORDERED: INSULIN GLARGINE 100 UNITS/ML SUBCUT SCH (10:00)
[2021-12-06] MEDS ORDERED: INSU100I28 SQ (10:59)
[2021-12-06] MEDS: SODIUM CHLORIDE 0.45% 1,000 ML IV SCH (12:50)
[2021-12-06] MEDS: METOCLOPRAMIDE HCL 10MG/2ML VIAL IV PRN ×2 (12:50→20:39)
[2021-12-06 15:57] LABS: CHLORIDE 109 mEq/L (98-107)
[2021-12-06 18:15] LABS: CHLORIDE 110 mEq/L (98-107)
[2021-12-06] MEDS: FAMOTIDINE 20MG/2ML VIAL IV SCH (20:39)
[2021-12-06 22:07] LABS: CHLORIDE 109 mEq/L (98-107)
[2021-12-07] VITALS: BP 107/71
[2021-12-07] MEDS: SODIUM CHLORIDE 0.45% 1,000 ML IV SCH (02:00)
[2021-12-07 02:10] VITALS: BP 97/62
[2021-12-07 04:00] VITALS: BP 126/87
[2021-12-07] MEDS: ONDANSETRON HCL 4MG/2ML INJ IV PRN (05:29)
[2021-12-07] MEDS: METOCLOPRAMIDE HCL 10MG/2ML VIAL IV PRN (05:29)
[2021-12-07 06:00] VITALS: BP 119/76
[2021-12-07] MEDS: BLOOD SUGAR DIAGNOSTIC STRIP TEST SCH (07:30)
[2021-12-07 08:00] VITALS: BP 117/72
[2021-12-07] MEDS: INSULIN LISPRO 100 UNITS/ML SUBCUT SCH (08:45)
[2021-12-07] MEDS: FAMOTIDINE 20MG/2ML VIAL IV SCH (08:45)
[2021-12-07] MEDS ORDERED: ENOXAPARIN 40MG/0.4ML SYR SUBCUT SCH (09:00)
[2021-12-07 09:40] VITALS: BP 117/62
== END 2021-12-07 15:37 | disposition home or self-care (01) | DRG 420 ==
LOC: ER 07:58 → MICUSO 11:21 → ENRESERV 13:39 → 5EST 12-06 06:33
PROVIDERS: ADMIT Internal Medicine; ATTEND Internal Medicine
DX: E11.10 Type 2 diabetes mellitus with ketoacidosis without coma (principal); E87.1 Hypo-osmolality and hyponatremia; F12.90 Cannabis use, unspecified, uncomplicated; Z91.19 Patient's noncompliance with other medical treatment and regimen; Z82.49 Family history of ischemic heart disease and other diseases of the circulatory system; Z79.82 Long term (current) use of aspirin; Z79.4 Long term (current) use of insulin; Z79.899 Other long term (current) drug therapy
CPT/HCPCS: 36415; 71045; 80048; 80053; 80305; 80320; 81003; 82010; 82962; 83735; 83880; 84100; 84484; 85025; 93005; 99291; C9113; J1815; J2405; J2765; J3490; G0480

== ENCOUNTER 2021-12-08 00:57 | Emergency (ER) | payer MEDICAID ==
[~2021-12-08] VITALS: Ht 175.3 cm; Wt 66.0 kg
[2021-12-08 01:03] VITALS: BP 122/76
== END 2021-12-08 04:36 | disposition left against medical advice (07) ==
LOC: ER 01:05
DX: Z53.21 Procedure and treatment not carried out due to patient leaving prior to being seen by health care provider (principal)
CPT/HCPCS: 93005

== ENCOUNTER 2022-03-19 10:59 | Emergency (ER) | payer MEDICAID ==
[~2022-03-19] VITALS: Ht 170.2 cm; Wt 68.0 kg
[~2022-03-19 10:59] MED LIST changes: +METR500T MT; +ONDA4TAB5 MT
[2022-03-19] MEDS ORDERED: ONDANSETRON HCL 4MG/2ML INJ IV STA ×3 (11:03→14:15)
[2022-03-19] MEDS ORDERED: SODIUM CHLORIDE 0.9% 1,000 ML IV ONE ×4 (11:15→13:15)
[2022-03-19 11:36] LABS: BASOPHILS % 0.4 % (0.0-2.0); EOSINOPHILS % 0.1 % (0.0-5.0); HEMATOCRIT. 42.4 % (42.0-52.0); HEMOGLOBIN. 13.9 g/dL (14.0-18.0); LYMPHOCYTES % 10.6 % (20.0-50.0); MEAN CORPUSCULAR HEMOGLOBIN 27.2 pg (28.0-32.0); MEAN CORPUSCULAR VOLUME 82.7 fL (80.0-94.0); MONOCYTES % 4.4 % (2.0-8.0); NEUTROPHILS % 84.5 % (40.0-76.0); PLATELET 251 x1000/uL (130-400); RED BLOOD CELL COUNT 5.12 mill/uL (4.7-6.1); RED CELL DISTRIBUTION WIDTH 13.8 % (11.6-14.6)
[2022-03-19 11:45] LABS: CHLORIDE 103 mEq/L (98-107)
[2022-03-19 11:46] LABS: CLARITY URINE CLEAR (CLEAR); COLOR URINE YELLOW (YELLOW); KETONES URINE 2+ (NEGATIVE); LEUKOCYTE ESTERASE URINE NEGATIVE (NEGATIVE); NITRITE URINE NEGATIVE (NEGATIVE); OCCULT BLOOD URINE NEGATIVE (NEGATIVE); PH URINE 8.5 (4.5-8.0); PROTEIN URINE NEGATIVE (NEGATIVE); SPECIFIC GRAVITY URINE 1.028 (1.005-1.030); UROBILINOGEN URINE 0.2 E.U./dL (0.2-1.0)
[2022-03-19 11:53] LABS: BETA HYDROXYBUTYRATE 1.7 mMol/L (0.0-0.3); ETHANOL BLOOD < 10 mg/dL
[2022-03-19 12:19] LABS: *AMPHETAMINES SCREEN URINE NEGATIVE (NEGATIVE); *BARBITURATES SCREEN URINE NEGATIVE (NEGATIVE); *BENZODIAZEPINES SCREEN URINE NEGATIVE (NEGATIVE); *COCAINE SCREEN URINE NEGATIVE (NEGATIVE); CANNABINOID URINE SCREEN PRESUMTIVE POSITIVE (NEGATIVE); METHADONE URINE SCREEN NEGATIVE (NEGATIVE); OPIATES URINE SCREEN NEGATIVE (NEGATIVE); PHENCYCLIDINE URINE SCREEN NEGATIVE (NEGATIVE)
[2022-03-19] MEDS ORDERED: INSULIN REGULAR (HUMULIN R) 300UNITS/3ML VIAL SUBCUT ONE (13:15)
[2022-03-19] MEDS ORDERED: MORPHINE SULFATE 4 MG/ML CPJ (NOT FOR IM USE) IV STA (14:15)
[2022-03-19 15:00] VITALS: BP 102/59
== END 2022-03-19 12:21 | disposition home or self-care (01) ==
LOC: ER 11:12
DX: E11.65 Type 2 diabetes mellitus with hyperglycemia (principal); Z79.4 Long term (current) use of insulin; R10.9 Unspecified abdominal pain; Z79.82 Long term (current) use of aspirin
CPT/HCPCS: 36415; 71045; 74176; 80053; 80305; 80320; 81003; 82010; 82962; 83690; 85025; 93005; 96361; 96372; 96374; 96375; 96376; 99285; J1815; J2270; J2405; J7030; G0480

== ENCOUNTER 2022-03-19 20:22 | Inpatient (IN) | payer MEDICAID ==
[~2022-03-19] VITALS: Ht 165.1 cm; Wt 59.0 kg
[2022-03-19] MEDS ORDERED: SODIUM CHLORIDE 0.9% 1,000 ML IV ONE (22:15)
[2022-03-19] MEDS ORDERED: METOCLOPRAMIDE HCL 10MG/2ML VIAL IV ONE (22:15)
[2022-03-19] MEDS ORDERED: DIPHENHYDRAMINE 50MG/ML VIAL IV ONE (22:15)
[2022-03-19 22:30] LABS: BASOPHILS % 0.4 % (0.0-2.0); MEAN CORPUSCULAR HEMOGLOBIN 27.2 pg (28.0-32.0); MEAN CORPUSCULAR VOLUME 83.4 fL (80.0-94.0); MEAN PLATELET VOLUME 7.9 fl (7.4-10.4); MONOCYTES % 4.2 % (2.0-8.0); NEUTROPHILS % 87.4 % (40.0-76.0); PLATELET 254 x1000/uL (130-400); RED BLOOD CELL COUNT 4.43 mill/uL (4.7-6.1); RED CELL DISTRIBUTION WIDTH 13.7 % (11.6-14.6)
[2022-03-19 22:39] LABS: CHLORIDE 109 mEq/L (98-107)
[2022-03-19 22:44] LABS: ETHANOL BLOOD < 10 mg/dL
[2022-03-19] MEDS ORDERED: INSULIN REGULAR (HUMULIN R) 300UNITS/3ML VIAL IV NR (23:00)
[2022-03-19] MEDS ORDERED: SODIUM CHL 0.45% + KCL 20MEQ/L 1,000 ML IV SCH (23:45)
[2022-03-19] MEDS ORDERED: INSULIN REGULAR 100U/100ML PMX 100 ML IV ONE (23:45)
[2022-03-20] VITALS (21 sets, daily range): BP systolic 81–120; BP diastolic 34–83
[2022-03-20] LABS: PHOSPHORUS 3.2 mg/dL (2.5-4.9)
[2022-03-20 00:29] LABS: CHLORIDE 104 mEq/L (98-107)
[2022-03-20] MEDS ORDERED: KCL 20MEQ/100ML PREMIX 100 ML IV NR (02:00)
[2022-03-20] MEDS ORDERED: MAGNESIUM 2 G PREMIX 50 ML IV NR (02:00)
[2022-03-20 03:33] LABS: CHLORIDE 112 mEq/L (98-107)
[2022-03-20 04:29] LABS: CHLORIDE 112 mEq/L (98-107)
[2022-03-20] MEDS ORDERED: DEXT 5%/0.45% NACL 1000ML 1,000 ML IV SCH (07:00)
[2022-03-20] MEDS ORDERED: DEXTROSE 50% WATER 50ML SYRINGE IV PRN ×2 (07:00→08:00)
[2022-03-20] MEDS: BLOOD SUGAR DIAGNOSTIC STRIP TEST SCH ×5 (07:14→21:52)
[2022-03-20] MEDS ORDERED: GUAIFENESIN 200MG/10ML SUGAR FREE UDC PO PRN (07:15)
[2022-03-20] MEDS ORDERED: TRAMADOL 50MG TABLET PO PRN (07:15)
[2022-03-20] MEDS ORDERED: MAGNESIUM/ALUMINUM HYDROXIDE/SIMETHICONE 30ML UDC PO PRN (07:15)
[2022-03-20] MEDS ORDERED: ONDANSETRON HCL 4MG/2ML INJ IV PRN (07:15)
[2022-03-20] MEDS ORDERED: DOCUSATE SODIUM 100MG CAPSULE PO PRN (07:15)
[2022-03-20] MEDS ORDERED: ACETAMINOPHEN 325MG TABLET PO PRN (07:15)
[2022-03-20] MEDS ORDERED: NALOXONE HCL 0.4MG/ML VIAL IV PRN (07:30)
[2022-03-20] MEDS ORDERED: INSULIN GLARGINE 100 UNITS/ML SUBCUT NR (08:10)
[2022-03-20] MEDS: INSULIN LISPRO 100 UNITS/ML SUBCUT SCH ×4 (08:15→21:00)
[2022-03-20] MEDS: PANTOPRAZOLE SODIUM 40 MG/VIAL IV SCH ×2 (08:29→08:50)
[2022-03-20] MEDS: SODIUM CHLORIDE 0.45% 1,000 ML IV SCH ×2 (08:29→17:36)
[2022-03-20 10:21] LABS: CHLORIDE 111 mEq/L (98-107)
[2022-03-20 11:14] LABS: BETA HYDROXYBUTYRATE 1.6 mMol/L (0.0-0.3)
[2022-03-20 12:44] LABS: CHLORIDE 110 mEq/L (98-107)
[2022-03-21] VITALS (15 sets, daily range): BP systolic 102–139; BP diastolic 60–84
[2022-03-21] MEDS: SODIUM CHLORIDE 0.45% 1,000 ML IV SCH (03:09)
[2022-03-21 05:35] LABS: BASOPHILS % 0.4 % (0.0-2.0); EOSINOPHILS % 0.6 % (0.0-5.0); HEMATOCRIT. 36.1 % (42.0-52.0); HEMOGLOBIN. 11.9 g/dL (14.0-18.0); LYMPHOCYTES % 29.3 % (20.0-50.0); MEAN CORPUSCULAR VOLUME 82.2 fL (80.0-94.0); MEAN PLATELET VOLUME 7.9 fl (7.4-10.4); MONOCYTES % 6.8 % (2.0-8.0); NEUTROPHILS % 62.9 % (40.0-76.0); PLATELET 257 x1000/uL (130-400); RED BLOOD CELL COUNT 4.39 mill/uL (4.7-6.1); RED CELL DISTRIBUTION WIDTH 13.6 % (11.6-14.6)
[2022-03-21 06:01] LABS: CHLORIDE 108 mEq/L (98-107)
[2022-03-21] MEDS: BLOOD SUGAR DIAGNOSTIC STRIP TEST SCH ×2 (08:18→11:28)
[2022-03-21] MEDS: INSULIN LISPRO 100 UNITS/ML SUBCUT SCH ×2 (08:19→11:28)
[2022-03-21] MEDS: PANTOPRAZOLE SODIUM 40 MG/VIAL IV SCH (09:18)
== END 2022-03-21 12:20 | disposition home or self-care (01) | DRG 420 ==
LOC: ER 20:22 → MICUSO 03-20 01:59 → CVICU 03-20 03:56
PROVIDERS: ADMIT Hospitalist; ATTEND Hospitalist
DX: E11.10 Type 2 diabetes mellitus with ketoacidosis without coma (principal); E11.65 Type 2 diabetes mellitus with hyperglycemia; E83.42 Hypomagnesemia; F12.90 Cannabis use, unspecified, uncomplicated; Z82.49 Family history of ischemic heart disease and other diseases of the circulatory system; Z79.4 Long term (current) use of insulin
CPT/HCPCS: 36415; 80048; 80053; 80320; 82010; 82962; 83036; 83735; 84100; 85025; 99291; C9113; J1200; J1815; J2765; J3475; J3480; J7030; G0480

== ENCOUNTER 2022-04-04 14:40 | Inpatient (IN) | payer MEDICAID ==
[~2022-04-04] VITALS: Ht 167.6 cm; Wt 63.5 kg
[2022-04-04] MEDS ORDERED: FAMOTIDINE 20MG/2ML VIAL IV STA (14:48)
[2022-04-04] MEDS ORDERED: ONDANSETRON HCL 4MG/2ML INJ IV STA (14:48)
[2022-04-04] MEDS ORDERED: MORPHINE SULFATE 4 MG/ML CPJ (NOT FOR IM USE) IV STA (14:48)
[2022-04-04] MEDS ORDERED: SODIUM CHLORIDE 0.9% 1,000 ML IV ONE (15:00)
[2022-04-04 15:12] LABS: BG BASE EXCESS -10.4 mmol/L (-2.0-2.0); BG CARBOXYHEMOGLOBIN 0.7 % (0.5-1.5); BG HCO3 ACT 14.1 mmol/L (22.0-26.0); BG METHEMOGLOBIN 0.2 % (0.0-1.5); BG OXYHEMOGLOBIN 96.1 % (94.0-97.0); BG PCO2 28.5 mmHg (35.0-45.0); BG PH 7.313 (7.350-7.450); BG PO2 91.2 mmHg (75.0-100.0); BG SAMPLE SITE RIGHT BRACHIAL; BG TOTAL HEMOGLOBIN 15.1 g/dL (12.0-18.0); BG VENT MODE ROOM AIR
[2022-04-04 15:42] LABS: BASOPHILS % 0.6 % (0.0-2.0); EOSINOPHILS % 0.1 % (0.0-5.0); HEMATOCRIT. 44.4 % (42.0-52.0); HEMOGLOBIN. 14.2 g/dL (14.0-18.0); LYMPHOCYTES % 15.7 % (20.0-50.0); MEAN CORPUSCULAR VOLUME 84.4 fL (80.0-94.0); MEAN PLATELET VOLUME 7.7 fl (7.4-10.4); MONOCYTES % 3.4 % (2.0-8.0); NEUTROPHILS % 80.2 % (40.0-76.0); PLATELET 290 x1000/uL (130-400); RED BLOOD CELL COUNT 5.26 mill/uL (4.7-6.1); RED CELL DISTRIBUTION WIDTH 14.2 % (11.6-14.6)
[2022-04-04 15:48] LABS: CHLORIDE 100 mEq/L (98-107)
[2022-04-04 16:00] LABS: BETA HYDROXYBUTYRATE 4.5 mMol/L (0.0-0.3); ETHANOL BLOOD < 10 mg/dL
[2022-04-04 16:25] LABS: CLARITY URINE CLEAR (CLEAR); COLOR URINE YELLOW (YELLOW); KETONES URINE 4+ (NEGATIVE); LEUKOCYTE ESTERASE URINE NEGATIVE (NEGATIVE); NITRITE URINE NEGATIVE (NEGATIVE); OCCULT BLOOD URINE NEGATIVE (NEGATIVE); PH URINE 5.5 (4.5-8.0); PROTEIN URINE NEGATIVE (NEGATIVE); SPECIFIC GRAVITY URINE 1.031 (1.005-1.030); UROBILINOGEN URINE 0.2 E.U./dL (0.2-1.0)
[2022-04-04 16:29] LABS: *AMPHETAMINES SCREEN URINE NEGATIVE (NEGATIVE); *BARBITURATES SCREEN URINE NEGATIVE (NEGATIVE); *BENZODIAZEPINES SCREEN URINE NEGATIVE (NEGATIVE); *COCAINE SCREEN URINE NEGATIVE (NEGATIVE); CANNABINOID URINE SCREEN PRESUMTIVE POSITIVE (NEGATIVE); METHADONE URINE SCREEN NEGATIVE (NEGATIVE); OPIATES URINE SCREEN NEGATIVE (NEGATIVE); PHENCYCLIDINE URINE SCREEN NEGATIVE (NEGATIVE)
[2022-04-04] MEDS ORDERED: CEFTRIAXONE 1 G PREMIX 50 ML IV NR (16:30)
[2022-04-04] MEDS ORDERED: SODIUM CHLORIDE 0.9% 1000ML BAG (SEPSIS BOLUS) IV NR (16:30)
[2022-04-04] MEDS ORDERED: ACETAMINOPHEN 325MG TABLET PO NR (18:47)
[2022-04-04] MEDS ORDERED: INSULIN GLARGINE 100 UNITS/ML SUBCUT NR (20:15)
[2022-04-04] MEDS ORDERED: INSULIN REGULAR (HUMULIN R) UD 100 UNITS/ML SYR SUBCUT ONE (20:15)
[2022-04-04] MEDS ORDERED: INSULIN REGULAR (HUMULIN R) 300UNITS/3ML VIAL SUBCUT NR (20:30)
[2022-04-04 21:30] VITALS: BP 134/73
[2022-04-04] MEDS ORDERED: ACETAMINOPHEN 325MG TABLET PO PRN (23:45)
[2022-04-04] MEDS ORDERED: DEXTROSE 50% WATER 50ML SYRINGE IV PRN (23:45)
[2022-04-05] VITALS: BP 122/60
[2022-04-05] MEDS: INSULIN GLARGINE 100 UNITS/ML SUBCUT SCH ×2 (00:55→09:13)
[2022-04-05 04:10] VITALS: BP 113/56
[2022-04-05] MEDS ORDERED: BLOOD SUGAR DIAGNOSTIC STRIP TEST SCH (07:10)
[2022-04-05] MEDS ORDERED: INSULIN LISPRO 100 UNITS/ML SUBCUT SCH (07:40)
[2022-04-05 07:48] VITALS: BP 120/70
[2022-04-05 08:32] LABS: HEMATOCRIT 38.5 % (42.0-52.0); HEMOGLOBIN 12.7 g/dL (14.0-18.0); MEAN CORPUSCULAR HEMOGLOBIN 27.4 pg (28.0-32.0); MEAN CORPUSCULAR VOLUME 83.1 fL (80.0-94.0); PLATELET 271 x1000/uL (130-400); RED BLOOD CELL COUNT 4.63 mill/uL (4.7-6.1); RED CELL DISTRIBUTION WIDTH 13.8 % (11.6-14.6)
[2022-04-05 08:51] LABS: CHLORIDE 104 mEq/L (98-107)
[2022-04-05] MEDS ORDERED: PANTOPRAZOLE SODIUM 40 MG/VIAL IV SCH (09:00)
== END 2022-04-05 10:57 | disposition home or self-care (01) | DRG 48 ==
LOC: ER 14:40 → 8WST 17:31 → EDBEDREQTM 17:36 → EDBEDREQ 17:36 → ENRESERV 19:14 → 8WST 23:44
PROVIDERS: ADMIT Internal Medicine; ATTEND Internal Medicine
DX: E11.43 Type 2 diabetes mellitus with diabetic autonomic (poly)neuropathy (principal); E87.2 Acidosis; E11.65 Type 2 diabetes mellitus with hyperglycemia; E86.0 Dehydration; K31.84 Gastroparesis; F12.10 Cannabis abuse, uncomplicated; Z79.899 Other long term (current) drug therapy; Z28.310 Unvaccinated for COVID-19; Z82.49 Family history of ischemic heart disease and other diseases of the circulatory system; R19.7 Diarrhea, unspecified
CPT/HCPCS: 36415; 36600; 71045; 80048; 80053; 80305; 80320; 81003; 82010; 82375; 82805; 82962; 83036; 83605; 83735; 84100; 84145; 84484; 85025; 85027; 93005; 99291; C9113; J0696; J1815; J2270; J2405; J3490; G0480

== ENCOUNTER 2022-04-15 19:16 | Emergency (ER) | payer MEDICAID ==
[~2022-04-15] VITALS: Ht 167.6 cm; Wt 58.4 kg
[2022-04-15 20:07] VITALS: BP 122/62
[2022-04-15] MEDS ORDERED: ONDANSETRON HCL 4MG/2ML INJ IV STA (21:32)
[2022-04-15] MEDS ORDERED: SODIUM CHLORIDE 0.9% 1,000 ML IV ONE (21:45)
[2022-04-15 22:53] LABS: BASOPHILS % 0.4 % (0.0-2.0); EOSINOPHILS % 0.1 % (0.0-5.0); HEMATOCRIT. 41.7 % (42.0-52.0); HEMOGLOBIN. 13.6 g/dL (14.0-18.0); LYMPHOCYTES % 11.4 % (20.0-50.0); MEAN CORPUSCULAR VOLUME 82.7 fL (80.0-94.0); MEAN PLATELET VOLUME 7.4 fl (7.4-10.4); MONOCYTES % 4.5 % (2.0-8.0); NEUTROPHILS % 83.6 % (40.0-76.0); PLATELET 354 x1000/uL (130-400); RED BLOOD CELL COUNT 5.05 mill/uL (4.7-6.1); RED CELL DISTRIBUTION WIDTH 14.3 % (11.6-14.6)
[2022-04-15 23:03] LABS: CHLORIDE 103 mEq/L (98-107)
[2022-04-16] MEDS ORDERED: ONDANSETRON HCL 4MG/2ML INJ ONE (02:12)
[2022-04-16] MEDS ORDERED: HALOPERIDOL LACTATE 5MG/ML VIAL IM ONE (02:12)
[2022-04-16] MEDS ORDERED: METOCLOPRAMIDE HCL 10MG/2ML VIAL IV NR (11:15)
== END 2022-04-15 21:20 | disposition left against medical advice (07) ==
LOC: ER 19:16
DX: Z53.21 Procedure and treatment not carried out due to patient leaving prior to being seen by health care provider (principal); E11.43 Type 2 diabetes mellitus with diabetic autonomic (poly)neuropathy; K31.84 Gastroparesis
CPT/HCPCS: 36415; 80053; 83690; 85025; J1630; J2405; J7030

== ENCOUNTER 2022-05-11 19:29 | Emergency (ER) | payer MEDICAID ==
[~2022-05-11] VITALS: Ht 167.6 cm; Wt 59.0 kg
[2022-05-11 19:45] VITALS: BP 117/81
[2022-05-11] MEDS ORDERED: MAGNESIUM/ALUMINUM HYDROXIDE/SIMETHICONE 30ML UDC PO STA (20:04)
[2022-05-11] MEDS ORDERED: VISCOUS LIDOCAINE 2% 15 ML UDC PO STA (20:04)
[2022-05-11] MEDS ORDERED: FAMOTIDINE 20MG TABLET PO ONE (20:15)
[2022-05-11] MEDS ORDERED: ONDANSETRON HCL 4MG TABLET PO ONE (20:15)
== END 2022-05-12 05:37 | disposition home or self-care (01) ==
LOC: ER 19:29
DX: R10.30 Lower abdominal pain, unspecified (principal); R11.2 Nausea with vomiting, unspecified; F12.10 Cannabis abuse, uncomplicated; E11.9 Type 2 diabetes mellitus without complications; Z79.899 Other long term (current) drug therapy
CPT/HCPCS: 82962; 99283

== ENCOUNTER 2022-06-27 21:25 | Emergency (ER) | payer MEDICAID ==
[~2022-06-27] VITALS: Ht 167.6 cm; Wt 80.0 kg
[2022-06-27 22:00] VITALS: BP 113/56
[2022-06-27] MEDS ORDERED: ONDANSETRON HCL 4MG/2ML INJ IV STA (22:50)
[2022-06-27] MEDS ORDERED: KETOROLAC 30MG/ML VIAL IV STA (22:50)
[2022-06-27] MEDS ORDERED: SODIUM CHLORIDE 0.9% 1,000 ML IV ONE (23:00)
[2022-06-28] MEDS ORDERED: KETOROLAC 15MG/ML VIAL IV NR (01:00)
[2022-06-28] MEDS ORDERED: KETOROLAC 30MG/ML VIAL IV NR (01:00)
[2022-06-28] MEDS ORDERED: ONDANSETRON HCL 4MG/2ML INJ IV NR (01:00)
== END 2022-06-28 05:09 | disposition left against medical advice (07) ==
LOC: ER 21:28
DX: R10.11 Right upper quadrant pain (principal); R11.10 Vomiting, unspecified
CPT/HCPCS: 82962; 99283; J7030

== ENCOUNTER 2022-06-29 14:29 | Emergency (ER) | payer MEDICAID ==
[~2022-06-29] VITALS: Ht 172.7 cm; Wt 73.0 kg
[2022-06-29 15:45] LABS: BASOPHILS % 0.4 % (0.0-2.0); HEMATOCRIT. 45.6 % (42.0-52.0); LYMPHOCYTES % 9.2 % (20.0-50.0); MEAN CORPUSCULAR HEMOGLOBIN 27.3 pg (28.0-32.0); MEAN CORPUSCULAR VOLUME 82.7 fL (80.0-94.0); MEAN PLATELET VOLUME 7.7 fl (7.4-10.4); MONOCYTES % 2.2 % (2.0-8.0); NEUTROPHILS % 88.2 % (40.0-76.0); PLATELET 347 x1000/uL (130-400); RED BLOOD CELL COUNT 5.52 mill/uL (4.7-6.1); RED CELL DISTRIBUTION WIDTH 14.1 % (11.6-14.6)
[2022-06-29 15:53] LABS: CHLORIDE 92 mEq/L (98-107)
[2022-06-29 16:02] LABS: ETHANOL BLOOD < 10 mg/dL
[2022-06-29] MEDS ORDERED: SODIUM CHLORIDE 0.9% 1,000 ML IV ONE (16:15)
[2022-06-29] MEDS ORDERED: METOCLOPRAMIDE HCL 10MG/2ML VIAL IV ONE (16:15)
[2022-06-29] MEDS ORDERED: HALOPERIDOL LACTATE 5MG/ML VIAL IM ONE (16:15)
[2022-06-29] MEDS ORDERED: HALOPERIDOL LACTATE 5MG/ML VIAL IM NR (18:00)
[2022-06-29] MEDS ORDERED: METOCLOPRAMIDE HCL 10MG/2ML VIAL IV NR (18:00)
[2022-06-29] MEDS ORDERED: INSULIN REGULAR (DRIP) 100 UNITS in SODIUM CHLORIDE 0.9% 100 ML IV ONE (18:30)
[2022-06-29 18:49] LABS: BG BASE EXCESS -16.8 mmol/L (-2.0-2.0); BG CARBOXYHEMOGLOBIN 0.8 % (0.5-1.5); BG DEOXYHEMOGLOBIN 2.8 % (0.0-5.0); BG FRACTION INSPIRED OXYGEN 21; BG HCO3 ACT 9.3 mmol/L (22.0-26.0); BG METHEMOGLOBIN 0.5 % (0.0-1.5); BG OXYGEN SATURATION 97.2 % (92.0-98.5); BG OXYHEMOGLOBIN 95.9 % (94.0-97.0); BG PCO2 24.2 mmHg (35.0-45.0); BG PH 7.203 (7.350-7.450); BG PO2 102.9 mmHg (75.0-100.0); BG SAMPLE SITE RIGHT RADIAL; BG TOTAL HEMOGLOBIN 14.9 g/dL (12.0-18.0); BG VENT MODE ROOM AIR
[2022-06-29] MEDS ORDERED: KETOROLAC 15MG/ML VIAL IV PRN (19:30)
[2022-06-29] MEDS ORDERED: IPRATROPIUM/ALBUTEROL 0.5-3(2.5)MG/3ML NEB NEB PRN (19:30)
[2022-06-29] MEDS ORDERED: CLONIDINE 0.1MG TABLET PO PRN (19:30)
[2022-06-29] MEDS ORDERED: ONDANSETRON HCL 4MG/2ML INJ IV PRN (19:30)
[2022-06-29] MEDS ORDERED: DOCUSATE SODIUM 100MG CAPSULE PO PRN (19:30)
[2022-06-29] MEDS ORDERED: GUAIFENESIN 200MG/10ML SUGAR FREE UDC PO PRN (19:30)
[2022-06-29] MEDS ORDERED: MAGNESIUM/ALUMINUM HYDROXIDE/SIMETHICONE 30ML UDC PO PRN (19:30)
[2022-06-29] MEDS ORDERED: NITROGLYCERIN 0.4MG TABLET SL SL PRN (19:30)
[2022-06-29] MEDS ORDERED: DEXTROSE 50% WATER 50ML SYRINGE IV PRN ×2 (19:30)
[2022-06-29] MEDS ORDERED: ACETAMINOPHEN 325MG TABLET PO PRN ×2 (19:30)
[2022-06-29] MEDS ORDERED: INSULIN REGULAR 100U/100ML PMX 100 ML IV SCH (19:30)
[2022-06-29] MEDS: BLOOD SUGAR DIAGNOSTIC STRIP TEST SCH ×4 (19:54→23:35)
[2022-06-29 19:58] LABS: T4 FREE 1.43 ng/dL (0.76-1.46)
[2022-06-29] MEDS ORDERED: ENOXAPARIN 40MG/0.4ML SYR SUBCUT SCH (20:00)
[2022-06-29 20:27] LABS: VITAMIN B12 SERUM 848 pg/mL (211-911)
[2022-06-29 20:31] LABS: PHOSPHORUS 5.7 mg/dL (2.5-4.9)
[2022-06-29] MEDS: SODIUM CHL 0.9% + KCL 20MEQ/L 1,000 ML IV SCH (20:57)
[2022-06-29] MEDS ORDERED: PANTOPRAZOLE SODIUM 40 MG/VIAL IV SCH (21:00)
[2022-06-29] MEDS ORDERED: ZOLPIDEM TARTRATE 5MG TABLET PO PRN (21:00)
[2022-06-29 23:13] LABS: PHOSPHORUS 4.3 mg/dL (2.5-4.9)
[2022-06-30] MEDS: BLOOD SUGAR DIAGNOSTIC STRIP TEST SCH ×8 (00:30→09:26)
[2022-06-30 00:34] LABS: PHOSPHORUS 3.1 mg/dL (2.5-4.9)
[2022-06-30 08:00] VITALS: BP 98/54
[2022-06-30] MEDS: SODIUM CHL 0.9% + KCL 20MEQ/L 1,000 ML IV SCH (08:26)
[2022-06-30 09:12] LABS: BG BASE EXCESS -10.5 mmol/L (-2.0-2.0); BG CARBOXYHEMOGLOBIN 0.4 % (0.5-1.5); BG FRACTION INSPIRED OXYGEN 21; BG HCO3 ACT 13.5 mmol/L (22.0-26.0); BG METHEMOGLOBIN 0.1 % (0.0-1.5); BG OXYHEMOGLOBIN 97.5 % (94.0-97.0); BG PCO2 25.6 mmHg (35.0-45.0); BG PH 7.341 (7.350-7.450); BG PO2 103.4 mmHg (75.0-100.0); BG SAMPLE SITE RIGHT RADIAL; BG TOTAL HEMOGLOBIN 13.1 g/dL (12.0-18.0); BG VENT MODE ROOM AIR
[2022-06-30 09:28] LABS: BASOPHILS % 0.4 % (0.0-2.0); EOSINOPHILS % 0.1 % (0.0-5.0); HEMATOCRIT. 37.2 % (42.0-52.0); HEMOGLOBIN. 12.3 g/dL (14.0-18.0); MEAN CORPUSCULAR HEMOGLOBIN 27.4 pg (28.0-32.0); MEAN CORPUSCULAR VOLUME 82.9 fL (80.0-94.0); MEAN PLATELET VOLUME 7.7 fl (7.4-10.4); MONOCYTES % 8.3 % (2.0-8.0); NEUTROPHILS % 78.2 % (40.0-76.0); PLATELET 280 x1000/uL (130-400); RED BLOOD CELL COUNT 4.49 mill/uL (4.7-6.1); RED CELL DISTRIBUTION WIDTH 13.5 % (11.6-14.6)
[2022-06-30 09:34] LABS: CHLORIDE 112 mEq/L (98-107)
[2022-06-30 09:41] LABS: PHOSPHORUS 2.7 mg/dL (2.5-4.9)
== END 2022-06-30 10:05 | disposition left against medical advice (07) ==
LOC: ER 14:29 → EDBEDREQTM 19:04 → EDBEDREQ 19:04 → EDBEDREQTM 06-30 07:53 → ENRESERV 06-30 09:40 → CANRESERV 06-30 09:40 → ER 06-30 10:05 → CANBEDREQ 06-30 10:21
DX: E11.10 Type 2 diabetes mellitus with ketoacidosis without coma (principal); R11.2 Nausea with vomiting, unspecified; F12.10 Cannabis abuse, uncomplicated; Z79.4 Long term (current) use of insulin
CPT/HCPCS: 36415; 36600; 80053; 80320; 82010; 82375; 82607; 82746; 82805; 82962; 83036; 83540; 83550; 83690; 83735; 84100; 84439; 84443; 85025; 93005; 93970; 96361; 96365; 96372; 96375; 99291; C9113; J1630; J1815; J2765; J3480; J7030; J7050; Z7610; J1650; G0480

== ENCOUNTER 2022-12-11 10:38 | Emergency (ER) | payer MEDICAID ==
[~2022-12-11] VITALS: Ht 165.1 cm; Wt 59.0 kg
[2022-12-11 11:28] LABS: BASOPHILS % 0.4 % (0.0-2.0); EOSINOPHILS % 0.3 % (0.0-5.0); HEMATOCRIT. 43.3 % (42.0-52.0); HEMOGLOBIN. 14.5 g/dL (14.0-18.0); LYMPHOCYTES % 13.9 % (20.0-50.0); MEAN CORPUSCULAR HEMOGLOBIN 27.6 pg (28.0-32.0); MEAN CORPUSCULAR VOLUME 82.4 fL (80.0-94.0); MEAN PLATELET VOLUME 8.1 fl (7.4-10.4); MONOCYTES % 3.1 % (2.0-8.0); NEUTROPHILS % 82.3 % (40.0-76.0); PLATELET 296 x1000/uL (130-400); RED BLOOD CELL COUNT 5.26 mill/uL (4.7-6.1); RED CELL DISTRIBUTION WIDTH 13.5 % (11.6-14.6)
[2022-12-11 11:36] LABS: CLARITY URINE CLEAR (CLEAR); COLOR URINE YELLOW (YELLOW); KETONES URINE 2+ (NEGATIVE); LEUKOCYTE ESTERASE URINE NEGATIVE (NEGATIVE); NITRITE URINE NEGATIVE (NEGATIVE); OCCULT BLOOD URINE NEGATIVE (NEGATIVE); PROTEIN URINE NEGATIVE (NEGATIVE); SPECIFIC GRAVITY URINE 1.033 (1.005-1.030); UROBILINOGEN URINE 0.2 E.U./dL (0.2-1.0)
[2022-12-11 11:36] LABS: CHLORIDE 105 mEq/L (98-107)
[2022-12-11] MEDS ORDERED: ONDANSETRON HCL 4MG/2ML INJ IV STA (11:49)
[2022-12-11] MEDS ORDERED: SODIUM CHLORIDE 0.9% 1,000 ML IV ONE (12:00)
[2022-12-11] MEDS ORDERED: FAMOTIDINE 20MG/2ML VIAL IV NR (13:00)
[2022-12-11] MEDS ORDERED: ONDANSETRON HCL 4MG/2ML INJ IV NR (13:00)
[2022-12-11] MEDS ORDERED: INSULIN REGULAR (HUMULIN R) 300UNITS/3ML VIAL IV NR (13:00)
[2022-12-11] MEDS ORDERED: IOHEXOL-300 100 ML BOTTLE ONE (14:36)
[2022-12-11] MEDS ORDERED: MORPHINE SULFATE 4 MG/ML CPJ (NOT FOR IM USE) IV NR (15:45)
[2022-12-11 15:57] LABS: *AMPHETAMINES SCREEN URINE NEGATIVE (NEGATIVE); *BARBITURATES SCREEN URINE NEGATIVE (NEGATIVE); *BENZODIAZEPINES SCREEN URINE NEGATIVE (NEGATIVE); *COCAINE SCREEN URINE NEGATIVE (NEGATIVE); CANNABINOID URINE SCREEN PRESUMTIVE POSITIVE (NEGATIVE); METHADONE URINE SCREEN NEGATIVE (NEGATIVE); OPIATES URINE SCREEN NEGATIVE (NEGATIVE); PHENCYCLIDINE URINE SCREEN NEGATIVE (NEGATIVE)
[2022-12-11] MEDS ORDERED: SODIUM CHLORIDE 0.9% 1,000 ML IV NR (17:15)
[2022-12-11] MEDS ORDERED: INSU100V51 SQ (17:22)
[2022-12-11] MEDS ORDERED: INSU100I13 SQ (17:22)
[2022-12-11 17:48] VITALS: BP 111/49
[2022-12-11] MEDS ORDERED: INSU100I68 SQ (19:01)
[2022-12-11] MEDS ORDERED: ONDA4TAB11 PO (19:03)
== END 2022-12-11 19:08 | disposition home or self-care (01) ==
LOC: ER 10:38
DX: E11.65 Type 2 diabetes mellitus with hyperglycemia (principal); F12.188 Cannabis abuse with other cannabis-induced disorder; R10.84 Generalized abdominal pain; Z79.4 Long term (current) use of insulin; Z79.82 Long term (current) use of aspirin; Z79.899 Other long term (current) drug therapy
CPT/HCPCS: 36415; 74177; 80053; 80305; 81003; 82010; 83690; 85025; 96361; 96374; 96375; 99285; J1815; J2270; J2405; J3490; J7030; Q9967; Z7610

== ENCOUNTER 2023-01-20 21:00 | Emergency (ER) | payer MEDICAID ==
[~2023-01-20 21:00] MED LIST changes: +INSU100I13 SQ; +INSU100I68 SQ; +INSU100V51 SQ; +ONDA4TAB11 PO
[2023-01-20 21:06] VITALS: BP 137/87
== END 2023-01-21 00:59 | disposition left against medical advice (07) ==
LOC: ER 21:00
DX: Z53.21 Procedure and treatment not carried out due to patient leaving prior to being seen by health care provider (principal)
CPT/HCPCS: 99281

== ENCOUNTER 2023-03-21 16:39 | Emergency (ER) | payer MEDICAID ==
[~2023-03-21] VITALS: Ht 167.6 cm; Wt 61.0 kg
[2023-03-21 17:09] VITALS: BP 128/73; PULSE 103; RESP 20; TEMP 98.3; O2SAT 99
[2023-03-21] MEDS ORDERED: BENZ1LOZ73 MT (18:57)
[2023-03-21] MEDS ORDERED: AMOX500T2 MT (18:57)
[2023-03-21] MEDS ORDERED: IBUP-2029 MT (18:57)
== END 2023-03-21 19:39 | disposition home or self-care (01) ==
LOC: ER 17:00
DX: J02.9 Acute pharyngitis, unspecified (principal); E11.9 Type 2 diabetes mellitus without complications; F12.10 Cannabis abuse, uncomplicated
CPT/HCPCS: 99283

== ENCOUNTER → 2023-07-09 | Emergency (ER) | payer MEDICAID ==
[~2023-07-09] VITALS: Ht 170.2 cm; Wt 66.0 kg
[~2023-07-09] MED LIST changes: +AMOX500T2 MT; +BENZ1LOZ73 MT; +HALOPERIDOL LACTATE 5MG/ML VIAL IM ONE; +IBUP-2029 MT; +SODIUM CHLORIDE 0.9% 1,000 ML IV ONE
[2023-07-09 15:29] VITALS: O2SAT 98
[2023-07-09 16:42] LABS: BASOPHILS % 0.3 % (0.0-2.0); EOSINOPHILS % 0.6 % (0.0-5.0); HEMATOCRIT. 45.6 % (42.0-52.0); HEMOGLOBIN. 14.9 g/dL (14.0-18.0); LYMPHOCYTES % 24.4 % (20.0-50.0); MEAN CORPUSCULAR HEMOGLOBIN 27.2 pg (28.0-32.0); MEAN CORPUSCULAR HGB CONC 32.8 g/dL (31.0-37.0); MEAN PLATELET VOLUME 7.8 fl (7.4-10.4); MONOCYTES % 6.1 % (2.0-8.0); NEUTROPHILS % 68.6 % (40.0-76.0); PLATELET 274 x1000/uL (130-400); RED BLOOD CELL COUNT 5.49 mill/uL (4.7-6.1); RED CELL DISTRIBUTION WIDTH 13.5 % (11.6-14.6); WHITE BLOOD COUNT 7.1 x1000/uL (4.5-11.0)
[2023-07-09 16:49] LABS: PROTHROMBIN TIME 10.8 sec (9.6-11.0)
[2023-07-09 16:51] LABS: CHLORIDE 109 mEq/L (98-107); INDEX HEMOLYSI 1 (1-3); INDEX ICTERIC 1 (1-4); INDEX LIPEMIC 1 (1-3); POTASSIUM 3.3 mEq/L (3.5-5.1); SODIUM 138 mEq/L (136-145)
[2023-07-09 16:59] LABS: ALANINE AMINOTRANSFERASE 35 IU/L (13-61); ALBUMIN 4.1 g/dL (3.4-5.0); ASPARTATE AMINOTRANSFERASE 39 IU/L (15-37); BILIRUBIN TOTAL 0.4 mg/dL (0.1-1.0); CALCIUM 8.8 mg/dL (8.5-10.1); CARBON DIOXIDE 25 mEq/L (21-32); CREATININE 0.9 mg/dL (0.6-1.3); GLUCOSE 148 mg/dL (70-105); PROTEIN TOTAL 7.9 g/dL (6.0-8.3); UREA NITROGEN BLOOD 14 mg/dL (7-21)
[2023-07-09 18:36] VITALS: BP 104/77; PULSE 84; RESP 14; TEMP 97.2
== END ==
LOC: ER 15:26
DX: R10.13 Epigastric pain (principal); F12.10 Cannabis abuse, uncomplicated; E11.9 Type 2 diabetes mellitus without complications; Z79.899 Other long term (current) drug therapy; Z53.21 Procedure and treatment not carried out due to patient leaving prior to being seen by health care provider
CPT/HCPCS: 99283; 80053; 83690; 85025; 85610; 36415; J7030

== ENCOUNTER 2024-05-02 11:47 | Inpatient (IN) | payer MEDICAID, OTHER ==
[~2024-05-02] VITALS: Ht 182.9 cm; Wt 62.6 kg
[~2024-05-02 11:47] MED LIST changes: -ALBU4TAB6 PO; -AMOX500T2 MT; -BENZ1LOZ73 MT; -HALOPERIDOL LACTATE 5MG/ML VIAL IM ONE; -IBUP-2029 MT; -INSLIS SUBCUT; -INSU100I13 SQ; +INSU100I13 SUBCUT; +INSU100I24 SUBCUT; -INSU100I28 SQ; -INSU100I68 SQ; -INSU100V51 SQ; -LANTUSUD SUBCUT; +METO10TA3 MT; -METO5TAB86 MT; -METR500T MT; -ONDA4TAB11 PO; -ONDA4TAB5 MT; -SODIUM CHLORIDE 0.9% 1,000 ML IV ONE
[2024-05-02 11:50] VITALS: O2SAT 97
[2024-05-02 12:42] LABS: BASOPHILS % 0.5 % (0.0-2.0); EOSINOPHILS % 0.2 % (0.0-5.0); HEMATOCRIT. 40.8 % (42.0-52.0); HEMOGLOBIN. 13.2 g/dL (14.0-18.0); LYMPHOCYTES % 17.9 % (20.0-50.0); MEAN CORPUSCULAR HEMOGLOBIN 26.8 pg (28.0-32.0); MEAN CORPUSCULAR HGB CONC 32.4 g/dL (31.0-37.0); MEAN CORPUSCULAR VOLUME 82.6 fL (80.0-94.0); MEAN PLATELET VOLUME 7.6 fl (7.4-10.4); MONOCYTES % 4.9 % (2.0-8.0); NEUTROPHILS % 76.5 % (40.0-76.0); PLATELET 267 x1000/uL (130-400); RED BLOOD CELL COUNT 4.94 mill/uL (4.7-6.1); RED CELL DISTRIBUTION WIDTH 13.6 % (11.6-14.6); WHITE BLOOD COUNT 5.3 x1000/uL (4.5-11.0)
[2024-05-02 12:46] LABS: CHLORIDE 105 mEq/L (98-107); POTASSIUM 3.6 mEq/L (3.5-5.1); SODIUM 137 mEq/L (136-145)
[2024-05-02 12:47] LABS: CARBON DIOXIDE 25 mEq/L (21-32)
[2024-05-02] MEDS: ONDANSETRON HCL 4MG/2ML INJ IV ONE ×2 (12:47→14:52)
[2024-05-02 12:48] LABS: CALCIUM 9.5 mg/dL (8.7-10.4)
[2024-05-02] MEDS: SODIUM CHLORIDE 0.9% 1,000 ML IV ONE ×2 (12:48→14:52)
[2024-05-02 12:51] LABS: INR 0.9; PROTHROMBIN TIME 10.5 sec (9.6-11.0)
[2024-05-02 12:52] LABS: CREATININE 1.2 mg/dL (0.6-1.3); GLUCOSE 265 mg/dL (70-105)
[2024-05-02 12:53] LABS: UREA NITROGEN BLOOD 11 mg/dL (9-23)
[2024-05-02 12:54] LABS: ALANINE AMINOTRANSFERASE 31 IU/L (10-49); ALBUMIN 4.7 g/dL (3.2-4.8); ASPARTATE AMINOTRANSFERASE 51 IU/L (<34)
[2024-05-02 12:55] LABS: BILIRUBIN DIRECT 0.2 mg/dL (<=3.0); BILIRUBIN TOTAL 0.5 mg/dL (0.1-1.0); PROTEIN TOTAL 7.6 g/dL (6.0-8.3)
[2024-05-02 13:38] LABS: TROPONIN I HIGH SENSITIVITY < 4 ng/L (3.0-53)
[2024-05-02 13:39] LABS: ETHANOL BLOOD < 10 mg/dL (<10)
[2024-05-02 14:20] LABS: BETA HYDROXYBUTYRATE 0.3 mMol/L (0.0-0.3)
[2024-05-02] MEDS: ACETAMINOPHEN 1000MG/100ML 100 ML IV ONE (14:52)
[2024-05-02 20:00] VITALS: BP_SYST 153; BP_DIAS 94; BP_DIAS 95; PULSE 108; RESP 20; TEMP 36.3918; TEMP 36.418; O2SAT 100
[2024-05-02] MEDS ORDERED: NALOXONE HCL 0.4MG/ML VIAL IV PRN (20:30)
[2024-05-02] MEDS: MORPHINE SULFATE 2 MG/ML INJ (NOT FOR IM USE) IV PRN (20:52)
[2024-05-02] MEDS: ONDANSETRON HCL 4MG/2ML INJ IV PRN (20:53)
[2024-05-02] MEDS: BLOOD SUGAR DIAGNOSTIC STRIP TEST SCH (21:07)
[2024-05-02] MEDS: INSULIN GLARGINE 100 UNITS/ML SUBCUT SCH (22:11)
[2024-05-02] MEDS: INSULIN LISPRO 100 UNITS/ML SUBCUT SCH (22:13)
[2024-05-03] VITALS: BP 109/74; PULSE 104; RESP 14; TEMP 37.00296; O2SAT 96
[2024-05-03] MEDS: PANTOPRAZOLE 80 MG in SODIUM CHLORIDE 0.9% 100 ML IV SCH
[2024-05-03 02:58] LABS: CLARITY URINE CLEAR (CLEAR); COLOR URINE YELLOW (YELLOW); GLUCOSE URINE 3+ (NEGATIVE); KETONES URINE 3+ (NEGATIVE); LEUKOCYTE ESTERASE URINE NEGATIVE (NEGATIVE); NITRITE URINE NEGATIVE (NEGATIVE); OCCULT BLOOD URINE NEGATIVE (NEGATIVE); PROTEIN URINE 1+ (NEGATIVE); SPECIFIC GRAVITY URINE 1.036 (1.005-1.030); UROBILINOGEN URINE 0.2 E.U./dL (0.2-1.0)
[2024-05-03 03:05] LABS: *AMPHETAMINES SCREEN URINE NEGATIVE (NEGATIVE); *BENZODIAZEPINES SCREEN URINE NEGATIVE (NEGATIVE)
[2024-05-03 03:06] LABS: *BARBITURATES SCREEN URINE NEGATIVE (NEGATIVE); *COCAINE SCREEN URINE NEGATIVE (NEGATIVE); CANNABINOID URINE SCREEN PRESUMPTIVE POSITIVE (NEGATIVE); ECSTASY MDMA SCREEN URINE NEGATIVE (NEGATIVE); METHADONE URINE SCREEN NEGATIVE (NEGATIVE); OPIATES URINE SCREEN PRESUMPTIVE POSITIVE (NEGATIVE); PHENCYCLIDINE URINE SCREEN NEGATIVE (NEGATIVE)
[2024-05-03 03:51] LABS: BACTERIA URINE NONE SEEN; RBC URINE NONE SEEN /hpf (0-2); SQUAMOUS EPITHELIAL CELL URINE NONE SEEN /lpf (RARE/1+); WBC URINE NONE SEEN /hpf (0-2)
[2024-05-03 04:00] VITALS: BP 88/56; PULSE 97; RESP 15; TEMP 37.33632; O2SAT 96
[2024-05-03 06:04] LABS: BASOPHILS % 0.2 % (0.0-2.0); HEMATOCRIT. 36.7 % (42.0-52.0); HEMOGLOBIN. 12.3 g/dL (14.0-18.0); LYMPHOCYTES % 13.7 % (20.0-50.0); MEAN CORPUSCULAR HEMOGLOBIN 27.9 pg (28.0-32.0); MEAN CORPUSCULAR HGB CONC 33.4 g/dL (31.0-37.0); MEAN CORPUSCULAR VOLUME 83.3 fL (80.0-94.0); NEUTROPHILS % 80.1 % (40.0-76.0); PLATELET 255 x1000/uL (130-400); RED BLOOD CELL COUNT 4.41 mill/uL (4.7-6.1); RED CELL DISTRIBUTION WIDTH 13.7 % (11.6-14.6); WHITE BLOOD COUNT 7.3 x1000/uL (4.5-11.0)
[2024-05-03 06:12] LABS: CHLORIDE 108 mEq/L (98-107); POTASSIUM 3.9 mEq/L (3.5-5.1); SODIUM 138 mEq/L (136-145)
[2024-05-03 06:14] LABS: CARBON DIOXIDE 23 mEq/L (21-32)
[2024-05-03 06:18] LABS: CREATININE 1.1 mg/dL (0.6-1.3); GLUCOSE 102 mg/dL (70-105)
[2024-05-03 06:19] LABS: UREA NITROGEN BLOOD 13 mg/dL (9-23)
[2024-05-03 06:20] LABS: ALANINE AMINOTRANSFERASE 23 IU/L (10-49)
[2024-05-03 06:21] LABS: ALBUMIN 4.2 g/dL (3.2-4.8); ASPARTATE AMINOTRANSFERASE 39 IU/L (<34); BILIRUBIN TOTAL 0.8 mg/dL (0.1-1.0); PROTEIN TOTAL 6.8 g/dL (6.0-8.3)
[2024-05-03 08:00] VITALS: BP 126/74; PULSE 82; RESP 16; TEMP 36.9474; O2SAT 100
[2024-05-03] MEDS: DEXTROSE 50% WATER 50ML SYRINGE IV PRN (08:44)
[2024-05-03] MEDS: INSULIN GLARGINE 100 UNITS/ML SUBCUT SCH (09:00)
[2024-05-03] MEDS ORDERED: HYDROCODONE/ACETAMINOPHEN 5/325MG TABLET PO PRN (10:45)
[2024-05-03 12:00] VITALS: BP 115/71; PULSE 87; RESP 16; TEMP 37.05852; O2SAT 100
[2024-05-03] MEDS: INSULIN LISPRO 100 UNITS/ML SUBCUT SCH (12:30)
[2024-05-03] MEDS: MORPHINE SULFATE 2 MG/ML INJ (NOT FOR IM USE) IV PRN (14:09)
[2024-05-03] MEDS: METOCLOPRAMIDE HCL 10MG/2ML VIAL IV PRN (14:13)
[2024-05-03 16:00] VITALS: BP 96/57; PULSE 93; RESP 16; TEMP 37.28076; O2SAT 100
[2024-05-03 20:00] VITALS: BP 97/54; PULSE 96; RESP 15; TEMP 37.61412; O2SAT 96
[2024-05-04] VITALS (17 sets, daily range): BP systolic 98–160; BP diastolic 56–97; PULSE 78–99; RESP 11–17; TEMP 37.05852–37.2252; O2SAT 95–100
[2024-05-04] MEDS: PANTOPRAZOLE 40MG DR TABLET PO SCH (07:30)
[2024-05-04 07:33] LABS: CALCIUM 8.9 mg/dL (8.7-10.4); CARBON DIOXIDE 25 mEq/L (21-32); CHLORIDE 104 mEq/L (98-107); POTASSIUM 3.4 mEq/L (3.5-5.1); SODIUM 137 mEq/L (136-145)
[2024-05-04 07:38] LABS: CREATININE 1.1 mg/dL (0.6-1.3)
[2024-05-04 07:39] LABS: GLUCOSE 93 mg/dL (70-105); UREA NITROGEN BLOOD 15 mg/dL (9-23)
[2024-05-04 07:44] LABS: BASOPHILS % 0.4 % (0.0-2.0); EOSINOPHILS % 0.2 % (0.0-5.0); HEMATOCRIT. 41.2 % (42.0-52.0); HEMOGLOBIN. 13.3 g/dL (14.0-18.0); LYMPHOCYTES % 20.4 % (20.0-50.0); MEAN CORPUSCULAR HEMOGLOBIN 26.7 pg (28.0-32.0); MEAN CORPUSCULAR HGB CONC 32.2 g/dL (31.0-37.0); MEAN CORPUSCULAR VOLUME 82.9 fL (80.0-94.0); MONOCYTES % 7.1 % (2.0-8.0); NEUTROPHILS % 71.9 % (40.0-76.0); PLATELET 254 x1000/uL (130-400); RED BLOOD CELL COUNT 4.97 mill/uL (4.7-6.1); RED CELL DISTRIBUTION WIDTH 13.7 % (11.6-14.6); WHITE BLOOD COUNT 4.9 x1000/uL (4.5-11.0)
[2024-05-04] MEDS: LORAZEPAM 2MG/ML INJ IV PRN (07:44)
[2024-05-04] MEDS: SODIUM CHLORIDE 0.9% 1,000 ML IV SCH (09:30)
[2024-05-04] MEDS: METOCLOPRAMIDE HCL 10MG/2ML VIAL IV SCH (12:00)
[2024-05-04] MEDS: POTASSIUM CHLORIDE 20MEQ TABLET SR PO NR (12:41)
[2024-05-05] MEDS ORDERED: LORA-249 MT (07:05)
[2024-05-05] MEDS ORDERED: METO-293 MT (07:05)
[2024-05-05] MEDS ORDERED: ONDA4TAB50 MT (07:05)
== END 2024-05-04 19:19 | disposition left against medical advice (07) | DRG 48 ==
LOC: ER 11:47 → 5WST 14:01 → EDBEDREQTM 15:04 → EDBEDREQSVC 15:04 → EDBEDREQ 15:04 → 6EST 19:01 → 5EST 23:31
PROVIDERS: ADMIT Internal Medicine; ATTEND Internal Medicine
DX: E11.43 Type 2 diabetes mellitus with diabetic autonomic (poly)neuropathy (principal); K31.84 Gastroparesis; K52.9 Noninfective gastroenteritis and colitis, unspecified; Z53.29 Procedure and treatment not carried out because of patient's decision for other reasons; Z79.4 Long term (current) use of insulin; Z79.899 Other long term (current) drug therapy
CPT/HCPCS: 36415; 71045; 74176; 80048; 80053; 80076; 80305; 80320; 81003; 82010; 82962; 83036; 84484; 85025; 93005; 99285; J1815; J2060; J2270; J2405; J2470; J2765; J7030; J7050; G0480; J0131

== ENCOUNTER 2024-06-26 14:58 | Emergency (ER) | payer MEDICAID, OTHER ==
[~2024-06-26] VITALS: Ht 167.6 cm; Wt 59.0 kg
[~2024-06-26 14:58] MED LIST changes: +LORA-249 MT; +METO-293 MT; +ONDA4TAB50 MT
[2024-06-26 15:01] VITALS: O2SAT 98
[2024-06-26] MEDS: ONDANSETRON HCL 4MG/2ML INJ IV STA (15:36)
[2024-06-26] MEDS: MORPHINE SULFATE 4 MG/ML INJ (FOR IV/IM USE) IV STA (15:36)
[2024-06-26 16:05] LABS: BASOPHILS % 0.4 % (0.0-2.0); EOSINOPHILS % 0.1 % (0.0-5.0); HEMATOCRIT. 40.7 % (42.0-52.0); HEMOGLOBIN. 13.6 g/dL (14.0-18.0); LYMPHOCYTES % 15.2 % (20.0-50.0); MEAN CORPUSCULAR HEMOGLOBIN 27.5 pg (28.0-32.0); MEAN CORPUSCULAR HGB CONC 33.4 g/dL (31.0-37.0); MEAN CORPUSCULAR VOLUME 82.4 fL (80.0-94.0); MEAN PLATELET VOLUME 7.9 fl (7.4-10.4); NEUTROPHILS % 81.3 % (40.0-76.0); PLATELET 269 x1000/uL (130-400); RED BLOOD CELL COUNT 4.94 mill/uL (4.7-6.1); RED CELL DISTRIBUTION WIDTH 13.2 % (11.6-14.6); WHITE BLOOD COUNT 4.7 x1000/uL (4.5-11.0)
[2024-06-26 16:24] LABS: CHLORIDE 103 mEq/L (98-107); POTASSIUM 3.9 mEq/L (3.5-5.1); SODIUM 135 mEq/L (136-145)
[2024-06-26 16:26] LABS: CALCIUM 9.6 mg/dL (8.7-10.4); CARBON DIOXIDE 22 mEq/L (21-32)
[2024-06-26 16:31] LABS: CREATININE 1.1 mg/dL (0.6-1.3)
[2024-06-26 16:32] LABS: UREA NITROGEN BLOOD 8 mg/dL (9-23)
[2024-06-26 16:33] LABS: ALANINE AMINOTRANSFERASE 42 IU/L (10-49); ALBUMIN 4.4 g/dL (3.2-4.8); ASPARTATE AMINOTRANSFERASE 64 IU/L (<34)
[2024-06-26 16:34] LABS: BILIRUBIN DIRECT 0.2 mg/dL (<=3.0); BILIRUBIN TOTAL 0.7 mg/dL (0.1-1.0); PROTEIN TOTAL 7.7 g/dL (6.0-8.3)
[2024-06-26 16:42] LABS: ETHANOL BLOOD < 10 mg/dL (<10); GLUCOSE 301 mg/dL (70-105)
[2024-06-26 18:12] VITALS: TEMP 36.61404
[2024-06-26] MEDS: SODIUM CHLORIDE 0.9% 1,000 ML IV ONE (18:54)
[2024-06-26 19:04] LABS: TROPONIN I HIGH SENSITIVITY < 4 ng/L (3.0-53)
[2024-06-26 20:47] VITALS: BP 106/68; PULSE 87; RESP 14; O2SAT 98
[2024-06-26] MEDS: IOHEXOL-300 100 ML BOTTLE ONE (23:40)
== END 2024-06-26 21:48 | disposition left against medical advice (07) ==
LOC: ER 14:58
DX: I95.9 Hypotension, unspecified (principal); R11.2 Nausea with vomiting, unspecified; E11.9 Type 2 diabetes mellitus without complications; Z79.899 Other long term (current) drug therapy
CPT/HCPCS: 80076; 80048; 80320; 83690; 85025; 86850; 86900; 86901; 84484; 36415; 71045; 74177; 93005; 96374; 96375; 99285; Q9967; J2405; J2270; J7030; Z7610; G0480

== ENCOUNTER 2024-12-31 18:46 | Inpatient (IN) | payer OTHER ==
[~2024-12-31] VITALS: Ht 167.6 cm; Wt 61.3 kg
[2024-12-31 18:52] VITALS: O2SAT 100
[2024-12-31 19:55] LABS: BASOPHILS % 0.6 % (0.0-2.0); HEMATOCRIT. 43.7 % (42.0-52.0); HEMOGLOBIN. 14.2 g/dL (14.0-18.0); LYMPHOCYTES % 11.4 % (20.0-50.0); MEAN CORPUSCULAR HEMOGLOBIN 26.8 pg (28.0-32.0); MEAN CORPUSCULAR HGB CONC 32.5 g/dL (31.0-37.0); MEAN CORPUSCULAR VOLUME 82.6 fL (80.0-94.0); MEAN PLATELET VOLUME 8.7 fl (7.4-10.4); MONOCYTES % 2.5 % (2.0-8.0); NEUTROPHILS % 85.5 % (40.0-76.0); PLATELET 279 x1000/uL (130-400); RED BLOOD CELL COUNT 5.29 mill/uL (4.7-6.1); WHITE BLOOD COUNT 5.2 x1000/uL (4.5-11.0)
[2024-12-31 20:04] LABS: CHLORIDE 97 mEq/L (98-107); POTASSIUM 4.6 mEq/L (3.5-5.1); SODIUM 132 mEq/L (136-145)
[2024-12-31 20:05] LABS: CARBON DIOXIDE 15 mEq/L (21-32)
[2024-12-31 20:06] LABS: CALCIUM 9.9 mg/dL (8.7-10.4)
[2024-12-31 20:10] LABS: CREATININE 1.3 mg/dL (0.6-1.3)
[2024-12-31 20:11] LABS: ETHANOL BLOOD < 10 mg/dL (<10); UREA NITROGEN BLOOD 13 mg/dL (9-23)
[2024-12-31 20:12] LABS: ALANINE AMINOTRANSFERASE 20 IU/L (10-49); ALBUMIN 4.5 g/dL (3.2-4.8); ASPARTATE AMINOTRANSFERASE 34 IU/L (<34)
[2024-12-31 20:13] LABS: BILIRUBIN DIRECT 0.3 mg/dL (<=3.0); PROTEIN TOTAL 8.3 g/dL (6.0-8.3)
[2024-12-31] MEDS: SODIUM CHLORIDE 0.9% 1,000 ML IV ONE ×2 (20:14→22:35)
[2024-12-31 20:19] LABS: PARTIAL THROMBOPLASTIN TIME 24.2 sec (23.4-31.0); PROTHROMBIN TIME 10.7 sec (9.6-11.0)
[2024-12-31 20:24] LABS: TROPONIN I HIGH SENSITIVITY < 4 ng/L (3.0-53)
[2024-12-31 20:27] LABS: GLUCOSE 483 mg/dL (70-105)
[2024-12-31 21:07] LABS: BG BASE EXCESS -13.2 mmol/L (-2.0-3.0); BG CARBOXYHEMOGLOBIN 0.3 % (0.5-1.5); BG DEOXYHEMOGLOBIN 1.8 % (0.0-5.0); BG HCO3 ACT 11.9 mmol/L (21.0-28.0); BG OXYGEN SATURATION 98.2 % (94.0-98.0); BG OXYHEMOGLOBIN 97.9 % (94.0-98.0); BG PCO2 26.6 mmHg (35.0-48.0); BG PO2 118.5 mmHg (83.0-108.0); BG TOTAL HEMOGLOBIN 14.3 g/dL (13.5-17.5); BG VENT MODE ROOM AIR
[2024-12-31] MEDS ORDERED: INSULIN REGULAR (DRIP) 100 UNITS in SODIUM CHLORIDE 0.9% 99 ML IV SCH (21:15)
[2024-12-31] MEDS ORDERED: KCL 20MEQ/100ML PREMIX 100 ML IV PRN (21:15)
[2024-12-31] MEDS ORDERED: BLOOD SUGAR DIAGNOSTIC STRIP TEST SCH (21:15)
[2024-12-31] MEDS ORDERED: SODIUM PHOSPHATE 15 MMOL in SODIUM CHLORIDE 0.9% 245 ML IV PRN (21:30)
[2024-12-31] MEDS ORDERED: POTASSIUM CHLORIDE 40 MEQ in SODIUM CHLORIDE 0.9% 230 ML IV PRN (21:30)
[2024-12-31] MEDS ORDERED: MAGNESIUM 2 G PREMIX 50 ML IV PRN (21:30)
[2024-12-31] MEDS ORDERED: BLOOD SUGAR DIAGNOSTIC STRIP TEST PRN (21:30)
[2024-12-31] MEDS ORDERED: IPRATROPIUM/ALBUTEROL 0.5-3(2.5)MG/3ML NEB NEB PRN (21:30)
[2024-12-31] MEDS ORDERED: DEXTROSE 50% WATER 50ML SYRINGE IV PRN (21:30)
[2024-12-31] MEDS: BLOOD SUGAR DIAGNOSTIC STRIP TEST SCH (22:30)
[2024-12-31] MEDS: DEXT 5%/0.9% NACL 1,000 ML IV SCH (22:31)
[2024-12-31] MEDS: INSULIN REGULAR 100U/100ML PMX 100 ML IV SCH (22:32)
[2024-12-31] MEDS: SODIUM CHLORIDE 0.9% 1,000 ML IV SCH (22:35)
[2024-12-31 22:55] LABS: CHLORIDE 99 mEq/L (98-107); SODIUM 133 mEq/L (136-145)
[2024-12-31 22:56] LABS: CALCIUM 9.2 mg/dL (8.7-10.4); CARBON DIOXIDE 13 mEq/L (21-32)
[2024-12-31 22:59] LABS: CLARITY URINE CLEAR (CLEAR); COLOR URINE YELLOW (YELLOW); GLUCOSE URINE 3+ (NEGATIVE); KETONES URINE 4+ (NEGATIVE); LEUKOCYTE ESTERASE URINE NEGATIVE (NEGATIVE); NITRITE URINE NEGATIVE (NEGATIVE); OCCULT BLOOD URINE NEGATIVE (NEGATIVE); PROTEIN URINE NEGATIVE (NEGATIVE); SPECIFIC GRAVITY URINE 1.025 (1.005-1.030); UROBILINOGEN URINE 0.2 E.U./dL (0.2-1.0)
[2024-12-31 23:01] LABS: CREATININE 1.4 mg/dL (0.6-1.3); UREA NITROGEN BLOOD 17 mg/dL (9-23)
[2024-12-31 23:06] LABS: POTASSIUM 6.6 mEq/L (3.5-5.1)
[2024-12-31 23:07] LABS: GLUCOSE 487 mg/dL (70-105)
[2024-12-31 23:09] LABS: *AMPHETAMINES SCREEN URINE NEGATIVE (NEGATIVE); *BARBITURATES SCREEN URINE NEGATIVE (NEGATIVE); *BENZODIAZEPINES SCREEN URINE NEGATIVE (NEGATIVE); *COCAINE SCREEN URINE NEGATIVE (NEGATIVE); CANNABINOID URINE SCREEN NEGATIVE (NEGATIVE); ECSTASY MDMA SCREEN URINE NEGATIVE (NEGATIVE); METHADONE URINE SCREEN NEGATIVE (NEGATIVE); OPIATES URINE SCREEN NEGATIVE (NEGATIVE); PHENCYCLIDINE URINE SCREEN NEGATIVE (NEGATIVE)
[2024-12-31 23:11] LABS: BACTERIA URINE NONE SEEN; RBC URINE NONE SEEN /hpf (0-2); SQUAMOUS EPITHELIAL CELL URINE RARE /lpf (RARE/1+); WBC URINE NONE SEEN /hpf (0-2)
[2024-12-31] MEDS ORDERED: NALOXONE HCL 0.4MG/ML VIAL IV PRN (23:30)
[2024-12-31] MEDS: ONDANSETRON HCL 4MG/2ML INJ IV PRN (23:38)
[2024-12-31] MEDS: MORPHINE SULFATE 4 MG/ML INJ (FOR IV/IM USE) IM PRN (23:38)
[2025-01-01] VITALS (30 sets, daily range): BP systolic 98–126; BP diastolic 60–74; PULSE 85–110; RESP 9–19; TEMP 36.7; O2SAT 97–100
[2025-01-01 02:00] LABS: CHLORIDE 107 mEq/L (98-107); POTASSIUM 4.1 mEq/L (3.5-5.1); SODIUM 139 mEq/L (136-145)
[2025-01-01 02:01] LABS: CARBON DIOXIDE 16 mEq/L (21-32)
[2025-01-01 02:08] LABS: PHOSPHORUS 3.7 mg/dL (2.5-4.9)
[2025-01-01] MEDS: CALCIUM GLUCONATE 1GM PREMIX 50 ML IV NR (03:12)
[2025-01-01] MEDS: KCL 20MEQ/100ML PREMIX 100 ML IV PRN (04:32)
[2025-01-01] MEDS: SODIUM ZIRCONIUM CYCLOSILICATE 10GM/PACKET PO NR (04:32)
[2025-01-01 06:26] LABS: CARBON DIOXIDE 22 mEq/L (21-32); CHLORIDE 110 mEq/L (98-107); POTASSIUM 4.2 mEq/L (3.5-5.1); SODIUM 140 mEq/L (136-145)
[2025-01-01 06:27] LABS: CALCIUM 8.8 mg/dL (8.7-10.4)
[2025-01-01 06:32] LABS: CREATININE 1.1 mg/dL (0.6-1.3)
[2025-01-01 06:33] LABS: UREA NITROGEN BLOOD 16 mg/dL (9-23)
[2025-01-01 06:35] LABS: PHOSPHORUS 1.7 mg/dL (2.5-4.9)
[2025-01-01] MEDS ORDERED: ACETAMINOPHEN 325MG TABLET PO PRN (06:45)
[2025-01-01] MEDS ORDERED: DEXTROSE 50% WATER 50ML SYRINGE IV PRN (06:45)
[2025-01-01] MEDS ORDERED: ONDANSETRON HCL 4MG/2ML INJ IV PRN (06:45)
[2025-01-01] MEDS ORDERED: BLOOD SUGAR DIAGNOSTIC STRIP TEST SCH (07:50)
[2025-01-01 07:58] LABS: GLUCOSE 211 mg/dL (70-105)
[2025-01-01] MEDS ORDERED: INSULIN REGULAR 100U/100ML PMX 100 ML IV SCH (08:15)
[2025-01-01] MEDS ORDERED: MAGNESIUM 2 G PREMIX 50 ML IV PRN (08:15)
[2025-01-01] MEDS ORDERED: INSULIN LISPRO 100 UNITS/ML SUBCUT SCH (08:20)
[2025-01-01] MEDS ORDERED: PANTOPRAZOLE SODIUM 40 MG/VIAL IV SCH (09:00)
[2025-01-01] MEDS ORDERED: FAMOTIDINE 20MG/2ML VIAL IV SCH (09:00)
[2025-01-01] MEDS ORDERED: INSULIN GLARGINE 100 UNITS/ML SUBCUT SCH (22:00)
== END 2025-01-01 08:00 | disposition left against medical advice (07) | DRG 420 ==
LOC: ER 18:46 → CVICU 22:15 → EDBEDREQTM 22:23
PROVIDERS: ADMIT Internal Medicine; ATTEND Internal Medicine
DX: E11.10 Type 2 diabetes mellitus with ketoacidosis without coma (principal); N17.9 Acute kidney failure, unspecified; K29.71 Gastritis, unspecified, with bleeding; E83.39 Other disorders of phosphorus metabolism; E11.43 Type 2 diabetes mellitus with diabetic autonomic (poly)neuropathy; E87.1 Hypo-osmolality and hyponatremia; E87.8 Other disorders of electrolyte and fluid balance, not elsewhere classified; K31.84 Gastroparesis; D64.9 Anemia, unspecified; R10.9 Unspecified abdominal pain; E83.42 Hypomagnesemia; E87.5 Hyperkalemia; F12.90 Cannabis use, unspecified, uncomplicated; Z53.29 Procedure and treatment not carried out because of patient's decision for other reasons; Z91.148 Patient's other noncompliance with medication regimen for other reason
CPT/HCPCS: 36415; 36600; 71045; 74176; 80048; 80051; 80076; 80305; 80320; 81003; 82010; 82375; 82805; 82962; 83735; 83930; 84100; 84484; 85025; 86850; 86900; 93005; 99291; J0610; J1815; J2270; J2405; J3480; J7030; G0480

== ENCOUNTER 2025-03-11 18:59 | Emergency (ER) | payer OTHER ==
[~2025-03-11] VITALS: Ht 167.6 cm; Wt 61.2 kg
[2025-03-11 19:03] VITALS: O2SAT 100
[2025-03-11 19:06] VITALS: BP 111/75; PULSE 99; RESP 14; TEMP 36.6; O2SAT 100
[2025-03-11 19:31] LABS: BASOPHILS % 0.8 % (0.0-2.0); EOSINOPHILS % 1.2 % (0.0-5.0); HEMATOCRIT. 37.9 % (42.0-52.0); HEMOGLOBIN. 12.7 g/dL (14.0-18.0); LYMPHOCYTES % 41.8 % (20.0-50.0); MEAN PLATELET VOLUME 7.8 fl (7.4-10.4); MONOCYTES % 6.3 % (2.0-8.0); NEUTROPHILS % 49.9 % (40.0-76.0); PLATELET 262 x1000/uL (130-400); RED BLOOD CELL COUNT 4.69 mill/uL (4.7-6.1); RED CELL DISTRIBUTION WIDTH 13.1 % (11.6-14.6)
[2025-03-11 19:55] LABS: CREATININE 1.1 mg/dL (0.6-1.3); UREA NITROGEN BLOOD 14 mg/dL (9-23)
[2025-03-11 20:03] LABS: TROPONIN I HIGH SENSITIVITY < 4 ng/L (3.0-53)
== END 2025-03-11 20:42 | disposition home or self-care (01) ==
LOC: ER 18:59
DX: R07.89 Other chest pain (principal); E11.9 Type 2 diabetes mellitus without complications; E78.00 Pure hypercholesterolemia, unspecified; R06.02 Shortness of breath; F12.90 Cannabis use, unspecified, uncomplicated; Z79.4 Long term (current) use of insulin; Z79.82 Long term (current) use of aspirin
CPT/HCPCS: 36415; 71045; 80048; 83880; 84484; 85025; 93005; 99285